=== PATIENT | male | born 1960 | race Two or more races ===

== ENCOUNTER 2017-08-16 15:02 | Inpatient (IN) | payer OTHER ==
[2017-08-16 18:59] VITALS: BMI 30.9
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
[2017-08-16] MEDS ORDERED: chlordiazePOXIDE HCL 25 MG CAPSULE PO ONE (20:37)
[2017-08-16] MEDS ORDERED: MENTHOL/PHENOL 1 EACH UD MM PRN (20:37)
[2017-08-16] MEDS ORDERED: MAGNESIUM HYDROX 2400MG/30ML ORAL SUSPENSION 30 ML CUP PO PRN (20:37)
[2017-08-16] MEDS ORDERED: NICOTINE POLACRILEX 2 MG GUM BC PRN (20:37)
[2017-08-16] MEDS ORDERED: MAGNESIUM CITRATE 300 ML BOTTLE PO PRN (20:37)
[2017-08-16] MEDS ORDERED: P-EPHED 60MG/TRIPROLIDI 2.5MG TABLET PO PRN (20:37)
[2017-08-16] MEDS ORDERED: chlordiazePOXIDE HCL 25 MG CAPSULE PO PRN (20:37)
[2017-08-16] MEDS ORDERED: LOPERAMIDE HCL 2 MG CAPSULE PO PRN (20:37)
[2017-08-16] MEDS ORDERED: MAG HYDROX/AL HYDROX/SIMETH 30 ML UNIT-DOSE CUP PO PRN (20:37)
[2017-08-16 22:54] LABS: URINE APPEARANCE CLEAR; URINE BILIRUBIN NEGATIVE (NEGATIVE); URINE BLOOD NEGATIVE (NEGATIVE); URINE COLOR YELLOW; URINE GLUCOSE (UA) NEGATIVE (NEGATIVE); URINE KETONE NEGATIVE (NEGATIVE); URINE LEUK ESTERASE NEGATIVE (NEGATIVE); URINE NITRITE NEGATIVE (NEGATIVE); URINE PROTEIN NEGATIVE (NEGATIVE); URINE UROBILINOGEN 4.0 E.U/dl mg/dL (0.2-1.0)
[2017-08-16] MEDS: THIAMINE HCL 100 MG TABLET (FP) PO SCH (22:58)
[2017-08-16] MEDS: chlordiazePOXIDE HCL 25 MG CAPSULE PO SCH (22:58)
[2017-08-16] MEDS: RANITIDINE HCL 150 MG TABLET (FP) PO SCH (22:58)
[2017-08-16] MEDS: IBUPROFEN 400 MG TABLET (FP) PO PRN (23:01)
[2017-08-17] MEDS: chlordiazePOXIDE HCL 25 MG CAPSULE PO SCH ×4 (05:43→22:08)
[2017-08-17] MEDS: IBUPROFEN 400 MG TABLET (FP) PO PRN ×2 (05:44→17:42)
[2017-08-17] MEDS ORDERED: METHADONE HCL 10 MG TABLET PO SCH (09:00)
[2017-08-17] MEDS ORDERED: METHADONE HCL 40 MG DISPERSABLE TABLET ONE (09:26)
[2017-08-17] MEDS ORDERED: METHADONE HCL 10 MG TABLET ONE (09:27)
[2017-08-17] MEDS: METHADONE 120 MG, METHADONE 30 MG PO SCH (10:00)
[2017-08-17 10:20] LABS: HEMATOCRIT 38.5 % (35.4-49); HEMOGLOBIN 12.1 GM/dL (11.7-16.9); MCH 26.6 pg (25.7-33.7); MCHC 31.5 g/dl (32.0-35.9); MEAN CELL VOLUME 84.6 fl (80-96); MEAN PLT VOLUME 10.2 fl (7.5-11.1); PLATELET COUNT 121 K/MM3 (134-434); RBC 4.55 M/mm3 (4.00-5.60); RDW 20.9 % (11.9-15.9)
[2017-08-17 10:26] LABS: BLOOD UREA NITROGEN 17 mg/dL (7-18); CHLORIDE 99 mmol/L (98-107); GLUCOSE,RANDOM 83 mg/dL (74-106); POTASSIUM 4.5 mmol/L (3.5-5.1); SODIUM 136 mmol/L (136-145)
[2017-08-17 10:31] LABS: ALK PHOS 142 U/L (45-117); ANION GAP 9 (8-16); BILIRUBIN,TOTAL 0.7 mg/dL (0.2-1.0); CALCIUM 8.5 mg/dL (8.5-10.1); CO2 28 mmol/L (21-32); CREATININE 0.7 mg/dL (0.7-1.3); SGOT/AST 116 U/L (15-37); SGPT/ALT 72 U/L (12-78); TOT PROT 8.6 g/dl (6.4-8.2)
[2017-08-17] MEDS: PRENATAL VITAMINS W/ FOLIC ACID TABLET (FP) PO SCH (10:49)
[2017-08-17] MEDS: SULFAMETHOXAZOLE/TRIMETHOPRIM 800MG/160MG D.S. TABLET PO SCH (10:49)
[2017-08-17] MEDS: RALTEGRAVIR POTASSIUM 400 MG TAB PO SCH (10:49)
[2017-08-17] MEDS: ATAZANAVIR SO4 300 MG CAPSULE PO SCH (10:49)
[2017-08-17] MEDS: RANITIDINE HCL 150 MG TABLET (FP) PO SCH ×2 (10:50→22:08)
[2017-08-17] MEDS: EMTRICITABINE 200MG/TENOFOVIR 300MG PO SCH (10:50)
[2017-08-17] MEDS: RITONAVIR 100 MG TABLET PO SCH (10:50)
[2017-08-17] MEDS: ASPIRIN COATED 81 MG TABLET.EC PO SCH (10:50)
[2017-08-17] MEDS: NICOTINE 14 MG/24 HOURS TOPICAL PATCH TD SCH (10:51)
--- NOTE | 2017-08-17 11:16 | PN ---
S CIWA - CIWA Score Nausea/Vomitin Muscle Tremors: 3 Anxiety: 3 Agitation: 3 Paroxysmal Sweats: 1-Minimal Palms Moist Orientation: 0-Oriented Tacttile Disturbances: 1-Very Mild Itch/Numbness Auditory Disturbances: 1-Very Mild Visual Disturbances: 0-None Headache: 2-Mild CIWA-Ar Total Score: 17 BHS Progress Note (SOAP) Subjective: ALERT,IRRITABLE,ANXIOUS,INTERRUPTED SLEEP,TREMOR,PAIN IN THE BODY Objective: 08/17/17 11:13 Vital Signs Temperature 99.1 F 08/17/17 10:12 Pulse Rate 69 08/17/17 10:12 Respiratory Rate 18 08/17/17 10:12 Blood Pressure 156/85 08/17/17 10:12 O2 Sat by Pulse Oximetry (%) EKG SINUS BRADYCARDIA 55/NV,POLONG QT 462/441 NO CHEST PAIN,NO SOB,NO DIZZINESS Laboratory Last Values WBC 3.0 K/mm3 (4.0-10.0) L 08/17/17 07:40 RBC 4.55 M/mm3 (4.00-5.60) 08/17/17 07:40 Hgb 12.1 GM/dL (11.7-16.9) 08/17/17 07:40 Hct 38.5 % (35.4-49) 08/17/17 07:40 MCV 84.6 fl (80-96) 08/17/17 07:40 MCH 26.6 pg (25.7-33.7) 08/17/17 07:40 MCHC 31.5 g/dl (32.0-35.9) L 08/17/17 07:40 RDW 20.9 % (11.9-15.9) H D 08/17/17 07:40 Plt Count 121 K/MM3 (134-434) L 08/17/17 07:40 MPV 10.2 fl (7.5-11.1) 08/17/17 07:40 Sodium 136 mmol/L (136-145) 08/17/17 08:00 Potassium 4.5 mmol/L (3.5-5.1) 08/17/17 08:00 Chloride 99 mmol/L (98-107) 08/17/17 08:00 Carbon Dioxide 28 mmol/L (21-32) 08/17/17 08:00 Anion Gap 9 (8-16) 08/17/17 08:00 BUN 17 mg/dL (7-18) D 08/17/17 08:00 Creatinine 0.7 mg/dL (0.7-1.3) D 08/17/17 08:00 Creat Clearance w eGFR > 60 (>60) 08/17/17 08:00 Random Glucose 83 mg/dL (74-106) 08/17/17 08:00 Calcium 8.5 mg/dL (8.5-10.1) 08/17/17 08:00 Total Bilirubin 0.7 mg/dL (0.2-1.0) D 08/17/17 08:00 AST 116 U/L (15-37) H D 08/17/17 08:00 ALT 72 U/L (12-78) D 08/17/17 08:00 Alkaline Phosphatase 142 U/L (45-117) H D 08/17/17 08:00 Total Protein 8.6 g/dl (6.4-8.2) H 08/17/17 08:00 Albumin 3.0 g/dl (3.4-5.0) L 08/17/17 08:00 Urine Color Yellow 08/16/17 Unknown Urine Appearance Clear 08/16/17 Unknown Urine pH 5.0 (5.0-8.0) 08/16/17 Unknown Ur Specific [place] 1.019 (1.001-1.035) 08/16/17 Unknown Urine Protein Negative (NEGATIVE) 08/16/17 Unknown Urine Glucose (UA) Negative (NEGATIVE) 08/16/17 Unknown Urine Ketones Negative (NEGATIVE) 08/16/17 Unknown Urine Blood Negative (NEGATIVE) 08/16/17 Unknown Urine Nitrite Negative (NEGATIVE) 08/16/17 Unknown Urine Bilirubin Negative (NEGATIVE) 08/16/17 Unknown Urine Urobilinogen 4.0 e.u/dl mg/dL (0.2-1.0) 08/16/17 Unknown Ur Leukocyte Esterase Negative (NEGATIVE) 08/16/17 Unknown Assessment: 08/17/17 11:15 WITHDRAWAL SYMPTOM Plan: CONTINUE DETOX,D/C TYLENOL DUE TO ELEVATION OF AST,ALT
--- NOTE | 2017-08-17 11:46 | CONSULT ---
[facility] Psychiatric Consult - Data Date of interview: 08/17/17 Admission source: [facility] Identifying data: Pt. is a 57 year old male, , father of three, unemployed and collecting SSI. This is one of multiple admissions for patient. Pt. admitted to for Substance Abuse History: Following information confirmed with Mr. Ronquillo: Smoking Cessation. Smoking history: Current every day smoker. Have you smoked in the past 12 months: Yes. Aproximately how many cigarettes per day: 20. Hx Chewing Tobacco Use: No. Initiated information on smoking cessation: Yes. ' Breaking Loose' booklet given: 08/16/17. - Substance & Tx. History. Hx Alcohol Use: Yes. Hx Substance Use: Yes. Substance Use Type: Alcohol, Cocaine , Heroin. Hx Substance Use Treatment: Yes ([facility] November 2013). - Substances Abused. Alcohol. Route: Oral. Frequency: Daily. Amount used: Beer 12 x 24oz, Vodka 5 x .5pints. Age of first use: 14. Date of Last Use: 08/16/17 Medical History: Anemia, Hep C, HIV (2010) Psychiatric History: Pt. denies h/o psychiatric hospitalizations. Reports outpatient care from [facility] for five years but will now be seeing a psychiatrist at the [facility] in the [place]. Diagnosed with MDD. States he is prescribed prozac 40mg and trazodone 150mg but has been medication nonadherent for one month. Pt. denies h/o suicide attempt. Physical/Sexual Abuse/Trauma History: Denies. Mental Status Exam - Mental Status Exam Alert and Oriented to: Time, Place, Person Cognitive Function: Good Patient Appearance: Well Groomed Mood: Euthymic Affect: Mood Congruent Patient Behavior: Cooperative Speech Pattern: Appropriate Voice Loudness: Normal Thought Process: Goal Oriented Thought Disorder: Not Present Hallucinations: Denies Suicidal Ideation: Denies Homicidal Ideation: Denies Insight/Judgement: Poor Sleep: Poorly Appetite: Fair Muscle strength/Tone: Normal Gait/Station: Normal Psychiatric Findings - Problem List ([place] 1, 2,3) (1) Cocaine dependence Current Visit: Yes Status: Chronic Qualifiers: Substance use status: uncomplicated Qualified Code(s): F14.20 - Cocaine dependence, uncomplicated (2) Opioid dependence Current Visit: Yes Status: Chronic Qualifiers: Substance use status: uncomplicated Qualified Code(s): F11.20 - Opioid dependence, uncomplicated (3) Alcohol dependence with uncomplicated withdrawal Current Visit: Yes Status: Acute (4) Methadone maintenance therapy patient Current Visit: Yes Status: Chronic Comment: 150 mg dose, pending verified (5) MDD (major depressive disorder) Current Visit: Yes Status: Chronic Comment: History. - Initial Treatment Plan Initial Treatment Plan: Psychoeducation provided. Detoxification in progress. Prozac 20mg (reduce dosage. Nonadherent for one month), and trazodone 50mg qhs ordered(reduce dosage. Nonadherent for one month). Pt. agreeable with plan Benefits and shannon effects discussed. Verbal consent given. Will continue to monitor.
[2017-08-17] MEDS: FLUoxetine HCL 20 MG CAPSULE (FP) PO SCH (11:54)
[2017-08-17] MEDS: ACETAMINOPHEN 325 MG TABLET (FP) PO PRN (18:39)
[2017-08-17] MEDS: traZODone HCL 50 MG TABLET (FP) PO SCH (22:08)
[2017-08-17] MEDS: THIAMINE HCL 100 MG TABLET (FP) PO SCH (22:08)
[2017-08-18] MEDS ORDERED: METHADONE HCL 40 MG DISPERSABLE TABLET ONE (03:29)
[2017-08-18] MEDS ORDERED: METHADONE HCL 10 MG TABLET ONE (03:29)
[2017-08-18] MEDS: METHADONE 120 MG, METHADONE 30 MG PO SCH (06:11)
[2017-08-18] MEDS: chlordiazePOXIDE HCL 25 MG CAPSULE PO SCH ×3 (06:11→17:43)
[2017-08-18] MEDS: SULFAMETHOXAZOLE/TRIMETHOPRIM 800MG/160MG D.S. TABLET PO SCH (11:00)
[2017-08-18] MEDS: FLUoxetine HCL 20 MG CAPSULE (FP) PO SCH (11:00)
[2017-08-18] MEDS: RITONAVIR 100 MG TABLET PO SCH (11:00)
[2017-08-18] MEDS: ASPIRIN COATED 81 MG TABLET.EC PO SCH (11:00)
[2017-08-18] MEDS: PRENATAL VITAMINS W/ FOLIC ACID TABLET (FP) PO SCH (11:00)
[2017-08-18] MEDS: RANITIDINE HCL 150 MG TABLET (FP) PO SCH ×2 (11:01→22:13)
[2017-08-18] MEDS: ATAZANAVIR SO4 300 MG CAPSULE PO SCH (11:01)
[2017-08-18] MEDS: EMTRICITABINE 200MG/TENOFOVIR 300MG PO SCH (11:01)
[2017-08-18] MEDS: RALTEGRAVIR POTASSIUM 400 MG TAB PO SCH (11:03)
[2017-08-18] MEDS: NICOTINE 14 MG/24 HOURS TOPICAL PATCH TD SCH (11:05)
[2017-08-18] MEDS: IBUPROFEN 400 MG TABLET (FP) PO PRN (16:11)
--- NOTE | 2017-08-18 20:52 | PN ---
S CIWA - CIWA Score Nausea/Vomitin Muscle Tremors: 3 Anxiety: 3 Agitation: 3 Paroxysmal Sweats: 3 Orientation: 0-Oriented Tacttile Disturbances: 0-None Auditory Disturbances: 0-None Visual Disturbances: 0-None Headache: 0-None Present CIWA-Ar Total Score: 15 BHS Progress Note (SOAP) Subjective: shakes sweats diarrhea Objective: 08/18/17 20:51 Vital Signs Temperature 101.1 F H 08/18/17 18:13 Pulse Rate 94 H 08/18/17 18:13 Respiratory Rate 20 08/18/17 18:13 Blood Pressure 126/83 08/18/17 18:13 O2 Sat by Pulse Oximetry (%) Laboratory Last Values WBC 3.0 K/mm3 (4.0-10.0) L 08/17/17 07:40 RBC 4.55 M/mm3 (4.00-5.60) 08/17/17 07:40 Hgb 12.1 GM/dL (11.7-16.9) 08/17/17 07:40 Hct 38.5 % (35.4-49) 08/17/17 07:40 MCV 84.6 fl (80-96) 08/17/17 07:40 MCH 26.6 pg (25.7-33.7) 08/17/17 07:40 MCHC 31.5 g/dl (32.0-35.9) L 08/17/17 07:40 RDW 20.9 % (11.9-15.9) H D 08/17/17 07:40 Plt Count 121 K/MM3 (134-434) L 08/17/17 07:40 MPV 10.2 fl (7.5-11.1) 08/17/17 07:40 Sodium 136 mmol/L (136-145) 08/17/17 08:00 Potassium 4.5 mmol/L (3.5-5.1) 08/17/17 08:00 Chloride 99 mmol/L (98-107) 08/17/17 08:00 Carbon Dioxide 28 mmol/L (21-32) 08/17/17 08:00 Anion Gap 9 (8-16) 08/17/17 08:00 BUN 17 mg/dL (7-18) D 08/17/17 08:00 Creatinine 0.7 mg/dL (0.7-1.3) D 08/17/17 08:00 Creat Clearance w eGFR > 60 (>60) 08/17/17 08:00 Random Glucose 83 mg/dL (74-106) 08/17/17 08:00 Calcium 8.5 mg/dL (8.5-10.1) 08/17/17 08:00 Total Bilirubin 0.7 mg/dL (0.2-1.0) D 08/17/17 08:00 AST 116 U/L (15-37) H D 08/17/17 08:00 ALT 72 U/L (12-78) D 08/17/17 08:00 Alkaline Phosphatase 142 U/L (45-117) H D 08/17/17 08:00 Total Protein 8.6 g/dl (6.4-8.2) H 08/17/17 08:00 Albumin 3.0 g/dl (3.4-5.0) L 08/17/17 08:00 Urine Color Yellow 08/16/17 Unknown Urine Appearance Clear 08/16/17 Unknown Urine pH 5.0 (5.0-8.0) 08/16/17 Unknown Ur Specific [place] 1.019 (1.001-1.035) 08/16/17 Unknown Urine Protein Negative (NEGATIVE) 08/16/17 Unknown Urine Glucose (UA) Negative (NEGATIVE) 08/16/17 Unknown Urine Ketones Negative (NEGATIVE) 08/16/17 Unknown Urine Blood Negative (NEGATIVE) 08/16/17 Unknown Urine Nitrite Negative (NEGATIVE) 08/16/17 Unknown Urine Bilirubin Negative (NEGATIVE) 08/16/17 Unknown Urine Urobilinogen 4.0 e.u/dl mg/dL (0.2-1.0) 08/16/17 Unknown Ur Leukocyte Esterase Negative (NEGATIVE) 08/16/17 Unknown RPR Titer Nonreactive (NONREACTIVE) 08/17/17 07:40 Assessment: 08/18/17 20:51 withdrawal sx Plan: continue detox
[2017-08-18] MEDS: THIAMINE HCL 100 MG TABLET (FP) PO SCH (22:13)
[2017-08-18] MEDS: traZODone HCL 50 MG TABLET (FP) PO SCH (22:13)
[2017-08-18] MEDS: chlordiazePOXIDE 5 MG CAPSULE PO SCH (22:13)
[2017-08-19] MEDS: IBUPROFEN 400 MG TABLET (FP) PO PRN ×2 (02:57→17:09)
[2017-08-19] MEDS ORDERED: METHADONE HCL 40 MG DISPERSABLE TABLET ONE (06:07)
[2017-08-19] MEDS: METHADONE 120 MG, METHADONE 30 MG PO SCH (06:08)
[2017-08-19] MEDS: chlordiazePOXIDE 5 MG CAPSULE PO SCH ×3 (06:08→17:09)
[2017-08-19] MEDS ORDERED: METHADONE HCL 10 MG TABLET ONE (06:08)
[2017-08-19] MEDS: ATAZANAVIR SO4 300 MG CAPSULE PO SCH (10:49)
[2017-08-19] MEDS: EMTRICITABINE 200MG/TENOFOVIR 300MG PO SCH (10:49)
[2017-08-19] MEDS: RITONAVIR 100 MG TABLET PO SCH (10:49)
[2017-08-19] MEDS: SULFAMETHOXAZOLE/TRIMETHOPRIM 800MG/160MG D.S. TABLET PO SCH (10:50)
[2017-08-19] MEDS: ASPIRIN COATED 81 MG TABLET.EC PO SCH (10:50)
[2017-08-19] MEDS: PRENATAL VITAMINS W/ FOLIC ACID TABLET (FP) PO SCH (10:50)
[2017-08-19] MEDS: FLUoxetine HCL 20 MG CAPSULE (FP) PO SCH (10:50)
[2017-08-19] MEDS: RANITIDINE HCL 150 MG TABLET (FP) PO SCH ×2 (10:50→22:33)
[2017-08-19] MEDS: RALTEGRAVIR POTASSIUM 400 MG TAB PO SCH (10:51)
[2017-08-19] MEDS: NICOTINE 14 MG/24 HOURS TOPICAL PATCH TD SCH (10:55)
[2017-08-19] MEDS: guaiFENesin/D-METHORPHAN HB 10 ML UNIT-DOSE CUPS PO PRN ×2 (10:55→17:13)
--- NOTE | 2017-08-19 13:32 | PN ---
[facility] Progress Note (SOAP) Subjective: alert oriented x 3 tolerate food and fluid well had pneumonia few weeks ago antibiotic completed Objective: 08/19/17 13:29 Vital Signs Temperature 98.4 F 08/19/17 10:00 Pulse Rate 90 08/19/17 10:00 Respiratory Rate 20 08/19/17 10:00 Blood Pressure 129/72 08/19/17 10:00 O2 Sat by Pulse Oximetry (%) Laboratory Last Values WBC 3.0 K/mm3 (4.0-10.0) L 08/17/17 07:40 RBC 4.55 M/mm3 (4.00-5.60) 08/17/17 07:40 Hgb 12.1 GM/dL (11.7-16.9) 08/17/17 07:40 Hct 38.5 % (35.4-49) 08/17/17 07:40 MCV 84.6 fl (80-96) 08/17/17 07:40 MCH 26.6 pg (25.7-33.7) 08/17/17 07:40 MCHC 31.5 g/dl (32.0-35.9) L 08/17/17 07:40 RDW 20.9 % (11.9-15.9) H D 08/17/17 07:40 Plt Count 121 K/MM3 (134-434) L 08/17/17 07:40 MPV 10.2 fl (7.5-11.1) 08/17/17 07:40 Sodium 136 mmol/L (136-145) 08/17/17 08:00 Potassium 4.5 mmol/L (3.5-5.1) 08/17/17 08:00 Chloride 99 mmol/L (98-107) 08/17/17 08:00 Carbon Dioxide 28 mmol/L (21-32) 08/17/17 08:00 Anion Gap 9 (8-16) 08/17/17 08:00 BUN 17 mg/dL (7-18) D 08/17/17 08:00 Creatinine 0.7 mg/dL (0.7-1.3) D 08/17/17 08:00 Creat Clearance w eGFR > 60 (>60) 08/17/17 08:00 Random Glucose 83 mg/dL (74-106) 08/17/17 08:00 Calcium 8.5 mg/dL (8.5-10.1) 08/17/17 08:00 Total Bilirubin 0.7 mg/dL (0.2-1.0) D 08/17/17 08:00 AST 116 U/L (15-37) H D 08/17/17 08:00 ALT 72 U/L (12-78) D 08/17/17 08:00 Alkaline Phosphatase 142 U/L (45-117) H D 08/17/17 08:00 Total Protein 8.6 g/dl (6.4-8.2) H 08/17/17 08:00 Albumin 3.0 g/dl (3.4-5.0) L 08/17/17 08:00 Urine Color Yellow 08/16/17 Unknown Urine Appearance Clear 08/16/17 Unknown Urine pH 5.0 (5.0-8.0) 08/16/17 Unknown Ur Specific [place] 1.019 (1.001-1.035) 08/16/17 Unknown Urine Protein Negative (NEGATIVE) 08/16/17 Unknown Urine Glucose (UA) Negative (NEGATIVE) 08/16/17 Unknown Urine Ketones Negative (NEGATIVE) 08/16/17 Unknown Urine Blood Negative (NEGATIVE) 08/16/17 Unknown Urine Nitrite Negative (NEGATIVE) 08/16/17 Unknown Urine Bilirubin Negative (NEGATIVE) 08/16/17 Unknown Urine Urobilinogen 4.0 e.u/dl mg/dL (0.2-1.0) 08/16/17 Unknown Ur Leukocyte Esterase Negative (NEGATIVE) 08/16/17 Unknown RPR Titer Nonreactive (NONREACTIVE) 08/17/17 07:40 lab noted Assessment: 08/19/17 13:29 mild withdrawal sx 98.4 at the present time Plan: medically supervised detox patient is immunocompromized client begin levaquin 500 mg po daily x 3 days encourage the patient follow up with infection disease physician
[2017-08-19] MEDS: traZODone HCL 50 MG TABLET (FP) PO SCH (22:33)
[2017-08-19] MEDS: ACETAMINOPHEN 325 MG TABLET (FP) PO PRN (22:33)
[2017-08-19] MEDS: chlordiazePOXIDE HCL 10 MG CAPSULE PO SCH (22:33)
[2017-08-19] MEDS: THIAMINE HCL 100 MG TABLET (FP) PO SCH (22:33)
[2017-08-20] MEDS ORDERED: METHADONE HCL 40 MG DISPERSABLE TABLET ONE (05:07)
[2017-08-20] MEDS ORDERED: METHADONE HCL 10 MG TABLET ONE (05:07)
[2017-08-20] MEDS: METHADONE 120 MG, METHADONE 30 MG PO SCH (05:52)
[2017-08-20] MEDS: chlordiazePOXIDE HCL 10 MG CAPSULE PO SCH ×2 (05:52→10:36)
--- NOTE | 2017-08-20 10:05 | DS ---
[facility] Detox Discharge Summary Admission Date: 08/16/17 Discharge Date: 08/20/17 - History Present History: Alcohol Dependence, Cocaine Dependence, MMTP Additional Comments: FOLLOW UP WITH AFTER CARE PROGRAM ARRANGEMENT Pertinent Past History: GERD OBESITY - Physical Exam Results Vital Signs: Vital Signs Temperature 97.0 F L 08/20/17 06:12 Pulse Rate 20 L 08/20/17 06:12 Respiratory Rate 84 H 08/20/17 06:12 Blood Pressure 106/66 08/20/17 06:12 O2 Sat by Pulse Oximetry (%) Pertinent Admission Physical Exam Findings: WITHDRAWAL SYMPTOM - Treatment Hospital Course: Detox Protocol Followed, Detoxed Safely, Responded well, Discharged Condition Good Patient has Accepted a Rehab Referral to: [facility] - Medication Discharge Medications: Ambulatory Orders Aspirin [Aspirin EC] 81 mg PO DAILY 12/02/13 Ranitidine [Zantac -] 150 mg PO BID 12/02/13 Sulfamethoxazole/Trimethoprim [Bactrim DS -] 1 tab PO DAILY 12/02/13 Fluoxetine HCl [Prozac] 40 mg PO DAILY #30 capsule 12/03/13 traZODone HCL [Desyrel -] 150 mg PO HS #30 tablet 12/03/13 Atazanavir [Reyataz -] 300 mg PO DAILY 08/16/17 Emtricitabine/Tenofovir [Truvada -] 1 tab PO DAILY 08/16/17 Raltegravir [Isentress] 400 mg PO DAILY 08/16/17 Ritonavir [Norvir -] 100 mg PO DAILY 08/16/17 levoFLOXacin [Levaquin -] 500 mg PO DAILY@0600 #1 tablet 08/19/17 - Diagnosis (1) Alcohol dependence with uncomplicated withdrawal Current Visit: Yes Status: Acute (2) Cocaine dependence Current Visit: Yes Status: Chronic Qualifiers: Substance use status: uncomplicated Qualified Code(s): F14.20 - Cocaine dependence, uncomplicated (3) Gastroesophageal reflux disease Current Visit: Yes Status: Chronic Qualifiers: Esophagitis presence: without esophagitis Qualified Code(s): K21.9 - Gastro -esophageal reflux disease without esophagitis (4) History of positive PPD Current Visit: Yes Status: Chronic (5) Human immunodeficiency virus infection Current Visit: Yes Status: Chronic (6) Methadone maintenance therapy patient Current Visit: Yes Status: Chronic (7) Cannabis dependence Current Visit: No Status: Acute (8) Obese Current Visit: Yes Status: Acute Qualifiers: Obesity type: unspecified obesity type Obesity classification: adult class 1 (BMI 30 - 34.9) Serious obesity comorbidity presence: unspecified whether serious comorbidity present - AMA Did Patient Leave Against Medical Advice: No
[2017-08-20] MEDS: FLUoxetine HCL 20 MG CAPSULE (FP) PO SCH (10:35)
[2017-08-20] MEDS: SULFAMETHOXAZOLE/TRIMETHOPRIM 800MG/160MG D.S. TABLET PO SCH (10:35)
[2017-08-20] MEDS: RITONAVIR 100 MG TABLET PO SCH (10:35)
[2017-08-20] MEDS: ATAZANAVIR SO4 300 MG CAPSULE PO SCH (10:35)
[2017-08-20] MEDS: PRENATAL VITAMINS W/ FOLIC ACID TABLET (FP) PO SCH (10:35)
[2017-08-20] MEDS: EMTRICITABINE 200MG/TENOFOVIR 300MG PO SCH (10:35)
[2017-08-20] MEDS: RANITIDINE HCL 150 MG TABLET (FP) PO SCH (10:35)
[2017-08-20] MEDS: ASPIRIN COATED 81 MG TABLET.EC PO SCH (10:35)
[2017-08-20] MEDS: RALTEGRAVIR POTASSIUM 400 MG TAB PO SCH (10:35)
[2017-08-20] MEDS: NICOTINE 14 MG/24 HOURS TOPICAL PATCH TD SCH (10:36)
[2017-08-20] MEDS: ACETAMINOPHEN 325 MG TABLET (FP) PO PRN (12:44)
[2017-08-20 13:30] VITALS: BP 138/75; PULSE 97; TEMP 101.8
--- NOTE | 2017-08-21 13:37 | EKG ---
Test Reason : Blood Pressure : / mmHG Vent. Rate : 055 BPM Atrial Rate : 055 BPM P-R Int : 150 ms QRS Dur : 088 ms QT Int : 462 ms P-R-T Axes : 064 047 046 degrees QTc Int : 441 ms SINUS BRADYCARDIA OTHERWISE NORMAL ECG WHEN COMPARED WITH ECG OF 16-AUG-2017 22:49, NO SIGNIFICANT CHANGE WAS FOUND Confirmed by MD Hood Daniel ([id number]) on 08/21/2017 1:37:25 PM Referred By: Confirmed By:Maverick Hood MD
--- NOTE | 2017-08-21 13:38 | EKG ---
Test Reason : Blood Pressure : / mmHG Vent. Rate : 064 BPM Atrial Rate : 064 BPM P-R Int : 164 ms QRS Dur : 080 ms QT Int : 478 ms P-R-T Axes : 059 056 057 degrees QTc Int : 493 ms NORMAL SINUS RHYTHM PROLONGED QT ABNORMAL ECG NO PREVIOUS ECGS AVAILABLE Confirmed by MD Erwin, Maverick ([id number]) on 08/21/2017 1:37:57 PM Referred By: Confirmed By:Maverick Hood MD
== END 2017-08-20 16:04 | disposition home or self-care (01) | DRG 773 ==
LOC: YASAS 15:02 → Y6N 19:49
PROVIDERS: ADMIT Internal Medicine; ATTEND Internal Medicine
PROC: HZ2ZZZZ Detoxification Services for Substance Abuse Treatment (ICD-10-PCS; principal; 2017-08-16)
DX: F11.20 Opioid dependence, uncomplicated (principal); F10.230 Alcohol dependence with withdrawal, uncomplicated; F14.20 Cocaine dependence, uncomplicated; F12.20 Cannabis dependence, uncomplicated; F33.9 Major depressive disorder, recurrent, unspecified; K21.9 Gastro-esophageal reflux disease without esophagitis; Z21 Asymptomatic human immunodeficiency virus [HIV] infection status; Z68.31 Body mass index [BMI] 31.0-31.9, adult; R76.11 Nonspecific reaction to tuberculin skin test without active tuberculosis
CPT/HCPCS: 36415; 71046-TC-FY; 80053; 81003; 85027; 86593; 93005; 93010

== ENCOUNTER 2017-08-20 16:29 | Inpatient (IN) | payer OTHER ==
[2017-08-20] MEDS ORDERED: MAG HYDROX/AL HYDROX/SIMETH 30 ML UNIT-DOSE CUP PO PRN (17:11)
[2017-08-20] MEDS ORDERED: MAGNESIUM HYDROX 2400MG/30ML ORAL SUSPENSION 30 ML CUP PO PRN (17:11)
[2017-08-20] MEDS ORDERED: LOPERAMIDE HCL 2 MG CAPSULE PO PRN (17:11)
[2017-08-20] MEDS ORDERED: hydrOXYzine PAMOATE 50 MG CAPSULE (FP) PO PRN (17:11)
[2017-08-20] MEDS ORDERED: MENTHOL/PHENOL 1 EACH UD MM PRN (17:11)
[2017-08-20] MEDS ORDERED: P-EPHED 60MG/TRIPROLIDI 2.5MG TABLET PO PRN (17:11)
[2017-08-20] MEDS ORDERED: MAGNESIUM CITRATE 300 ML BOTTLE PO PRN (17:11)
[2017-08-20] MEDS ORDERED: guaiFENesin/D-METHORPHAN HB 10 ML UNIT-DOSE CUPS PO PRN (17:11)
[2017-08-20] MEDS ORDERED: IBUPROFEN 400 MG TABLET (FP) PO PRN (17:11)
[2017-08-20] MEDS ORDERED: NICOTINE POLACRILEX 4 MG GUM BUC PRN (17:11)
[2017-08-20] MEDS: THIAMINE HCL 100 MG TABLET (FP) PO SCH (21:12)
[2017-08-20] MEDS: RANITIDINE HCL 150 MG TABLET (FP) PO SCH (21:13)
[2017-08-20] MEDS: NICOTINE 21 MG/24 HOURS TOPICAL PATCH TD SCH (21:13)
[2017-08-20] MEDS: traZODone HCL 50 MG TABLET (FP) PO SCH (22:43)
[2017-08-21] MEDS ORDERED: METHADONE HCL 10 MG TABLET PO SCH (06:00)
[2017-08-21] MEDS ORDERED: METHADONE HCL 40 MG DISPERSABLE TABLET ONE (06:05)
[2017-08-21] MEDS ORDERED: METHADONE HCL 10 MG TABLET ONE (06:05)
[2017-08-21] MEDS: ACETAMINOPHEN 325 MG TABLET (FP) PO PRN ×2 (06:36→15:16)
[2017-08-21] MEDS: METHADONE 120 MG, METHADONE 30 MG PO SCH (06:37)
[2017-08-21] MEDS: ATAZANAVIR SO4 300 MG CAPSULE PO SCH (07:02)
[2017-08-21] MEDS: RITONAVIR 100 MG TABLET PO SCH (07:02)
[2017-08-21] MEDS: RALTEGRAVIR POTASSIUM 400 MG TAB PO SCH (07:02)
[2017-08-21] MEDS: PRENATAL VITAMINS W/ FOLIC ACID TABLET (FP) PO SCH (09:53)
[2017-08-21] MEDS: SULFAMETHOXAZOLE/TRIMETHOPRIM 800MG/160MG D.S. TABLET PO SCH (09:53)
[2017-08-21] MEDS: FLUoxetine HCL 20 MG CAPSULE (FP) PO SCH (09:53)
[2017-08-21] MEDS: RANITIDINE HCL 150 MG TABLET (FP) PO SCH ×2 (09:53→21:22)
[2017-08-21] MEDS: NICOTINE 21 MG/24 HOURS TOPICAL PATCH TD SCH (09:53)
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
[2017-08-21] MEDS ORDERED: PNEUMOC 13-VAL CONJ-DIP CRM/PF 0.5 ML DISP.SYRIN IM ONE (12:00)
[2017-08-21] MEDS ORDERED: hydrOXYzine PAMOATE 50 MG CAPSULE (FP) PO PRN (13:01)
--- NOTE | 2017-08-21 13:08 | HP ---
[facility] Rehab Assess/Revision - Admission History Admitted to Rehab from: [facility] Date of Admission to Rehab: 08/21/2017 - Vital signs Vital Signs: Vital Signs Period Temp Pulse Resp BP Sys/Dsouza Pulse Ox Last 24 Hr 98 F-100.0 F 88 18-20 151/65 - Findings Detox History & Physical reviewed: Yes Concur with findings: Yes Inpatient Rehab Admission - Initial Determination Are CD services needed?: Yes Free of communicable disease: Yes Not in need of hospitalization: Yes - Rehab Admission Criteria Comorbidities: Yes Patient is meeting Inpatient Rehab admission criteria:: Yes
[2017-08-21] MEDS ORDERED: AZITHROMYCIN 250 MG TABLET PO ONE (13:55)
[2017-08-21] MEDS: traZODone HCL 50 MG TABLET (FP) PO SCH (21:22)
[2017-08-21] MEDS: THIAMINE HCL 100 MG TABLET (FP) PO SCH (21:22)
[2017-08-22] MEDS ORDERED: METHADONE HCL 40 MG DISPERSABLE TABLET ONE (03:26)
[2017-08-22] MEDS ORDERED: METHADONE HCL 10 MG TABLET ONE (03:26)
[2017-08-22] MEDS: METHADONE 120 MG, METHADONE 30 MG PO SCH (06:19)
[2017-08-22 06:55] VITALS: BP 145/79; PULSE 96
[2017-08-22] MEDS: RALTEGRAVIR POTASSIUM 400 MG TAB PO SCH (07:01)
[2017-08-22] MEDS: RITONAVIR 100 MG TABLET PO SCH (07:01)
[2017-08-22] MEDS: ATAZANAVIR SO4 300 MG CAPSULE PO SCH (07:01)
[2017-08-22] MEDS: RANITIDINE HCL 150 MG TABLET (FP) PO SCH (09:54)
[2017-08-22] MEDS: FLUoxetine HCL 20 MG CAPSULE (FP) PO SCH (09:54)
[2017-08-22] MEDS: SULFAMETHOXAZOLE/TRIMETHOPRIM 800MG/160MG D.S. TABLET PO SCH (09:54)
[2017-08-22] MEDS: PRENATAL VITAMINS W/ FOLIC ACID TABLET (FP) PO SCH (09:54)
[2017-08-22] MEDS: ACETAMINOPHEN 325 MG TABLET (FP) PO PRN (09:55)
[2017-08-22] MEDS: NICOTINE 21 MG/24 HOURS TOPICAL PATCH TD SCH (09:56)
[2017-08-22] MEDS ORDERED: AZITHROMYCIN 250 MG TABLET PO SCH (10:00)
[2017-08-22 11:43] VITALS: TEMP 98.2
--- NOTE | 2017-08-22 14:52 | PN ---
S Progress Note Note: Patient wants to leave AMA. Patient was counseled on the benefits of completing rehab and risk of leaving prior to completion. Patient verbalized understanding.
--- NOTE | 2017-08-22 15:30 | PN ---
[facility] Progress Note Note: patient decided to sigh out AMA today despite staff's recommendations to continue stabilization in inpatient facility.Patient will continue to address his issues on outpatient basis.He will continue current medications as per plan.Scripts for 30 days provided.
== END 2017-08-22 15:45 | disposition left against medical advice (07) | DRG 770 ==
LOC: YASAS 16:29 → Y5N 16:30
PROVIDERS: ADMIT Psychiatry & Neurology Psychiatry; ATTEND Psychiatry & Neurology Psychiatry
PROC: HZ42ZZZ Group Counseling for Substance Abuse Treatment, Cognitive-Behavioral (ICD-10-PCS; principal; 2017-08-20)
DX: F10.20 Alcohol dependence, uncomplicated (principal); F11.20 Opioid dependence, uncomplicated; F14.20 Cocaine dependence, uncomplicated; F12.20 Cannabis dependence, uncomplicated; F17.210 Nicotine dependence, cigarettes, uncomplicated; F41.1 Generalized anxiety disorder; F33.3 Major depressive disorder, recurrent, severe with psychotic symptoms; K21.9 Gastro-esophageal reflux disease without esophagitis; J06.9 Acute upper respiratory infection, unspecified; R76.11 Nonspecific reaction to tuberculin skin test without active tuberculosis; E66.9 Obesity, unspecified
CPT/HCPCS: 71046-TC-FY

== ENCOUNTER 2018-05-28 15:29 | Inpatient (IN) | payer OTHER ==
[2018-05-28 17:08] VITALS: BMI 28.4
--- NOTE | 2018-05-28 21:33 | HP ---
COWS - Scale Resting Pulse: 1= [place] 81-100 Sweatin=Flushed/Facial Moisture Restless Observation: 1= Difficult to Sit Still Pupil Size: 0= Normal to Room Light Bone or Joint Aches: 1= Mild Discomfort Runny Nose/ Eye Tearin= Runny Nose/Eyes GI Upset > 30mins: 2= Nausea/Diarrhea (No diarrhea) Tremor Observation: 2= Slight Tremor Visible Yawning Observation: 0= None Anxiety or Irritability: 1=Feels Anxious/Irritable Goose Flesh Skin: 0=Smooth Skin COWS Score: 12 CIWA Score Nausea/Vomitin-Mild Nausea/No Vomiting Muscle Tremors: 4-Moderate,w/Arms Extend Anxiety: 1-Mildly Anxious Agitation: 4-Moderately Restless Paroxysmal Sweats: 3 (Facial moisture) Orientation: 1-Uncertain about Date Tacttile Disturbances: 1-Very Mild Itch/Numbness (feels crawling under skin) Auditory Disturbances: 0-None Visual Disturbances: 0-None Headache: 2-Mild CIWA-Ar Total Score: 17 - Admission Criteria [facility]ASAS Guidelines: Admission for Medically Managed Detox: Requires at least one of the followin. CIWA greater than 12 2. Seizures within the past 24 hours 3. Delirium tremens within the past 24 hours 4. Hallucinations within the past 24 hours 5. Acute intervention needed for co occurring medical disorder 6. Acute intervention needed for co occurring psychiatric disorder 7. Severe withdrawal that cannot be handled at a lower level of care (continued vomiting, continued diarrhea, abnormal vital signs) requiring intravenous medication and/or fluids 8. Patient presents the following: CIWA greater than 12 Admission Criteria Met: Admission criteria met Admission ROS [facility] Chief Complaint: Here for heroin and alcohol withdrawal). Allergies/Adverse Reactions: Allergies Allergy/AdvReac Type Severity Reaction Status Date / Time No Known Allergies Allergy Verified 05/28/18 18:19 History of Present Illness: Here for detox and get off all these drugs to get my life in order" Nicotine use since age 8. Marijuana use since age 10. Cocaine use since age 14. Heroin use since age 14. Used to be in a [facility] and left 6 months ago. (Was in [facility]) Street methadone x 1 time. Alcohol use since age 21. Denies hx seizures, blackouts, overdose. HIV +. Did not bring HIV meds. States last took 4 days ago. Hx oral Thrush Hx BLE neuropathy and swollen feet States acid reflux undr control. Does not want Zantac. Hx depression - not seeing a MH provider. Denies thoughts of harming self or others. Search Terms: Xavi Ronquillo, 1960 Search Date: 05/28/2018 09:31:56 PM The Drug Utilization Report below displays all of the controlled substance prescriptions, if any, that your patient has filled in the last twelve months. The information displayed on this report is compiled from pharmacy submissions to the Department, and accurately reflects the information as submitted by the pharmacies. This report was requested by: Lynda Moy | Reference #: [id number] There are no results for the search terms that you entered. Exam Limitations: No Limitations - Ebola screening Have you traveled outside of the country in the last 21 days: No Have you had contact with anyone from an Ebola affected area: No Have you been sick,other than usual withdrawal symptoms: No - Review of Systems Constitutional: Chills, Diaphoresis, Changes in sleep (Difficulty staying asleep.) EENT: reports: Blurred Vision, Hearing Loss (Some problems), Dental Problems ( Missing teeth. Chews and swallows ok.) Respiratory: reports: Shortness of Breath (States r/t cigarette smoke) Cardiac: reports: No Symptoms Reported GI: reports: Nausea : reports: No Symptoms Reported Musculoskeletal: reports: Other (Chronic lower legs pain r/t neuopathy) Integumentary: reports: No Symptoms Reported Neuro: reports: Headache, Numbness (in lower legs r/t neuopathy), Tingling ( lower legs pain r/t neuopathy) Endocrine: reports: No Symptoms Reported Hematology: reports: Other (HIV +. Did not bring HIV meds. States last took 4 days ago.) Psychiatric: reports: Judgement Intact, Orientated x3, Agitated, Anxious, Depressed (Denies thoughts of harming self or others) Patient History - Patient Medical History Hx Anemia: Yes Hx Asthma: No Hx Chronic Obstructive Pulmonary Disease (COPD): No Hx Cancer: No Hx Cardiac Disorders: No Hx Congestive Heart Failure: No Hx Hypertension: No Hx Hypercholesterolemia: No HX Cerebrovascular Accident: No Hx Seizures: No Hx Dementia: No Hx Diabetes: No Hx Gastrointestinal Disorders: Yes Hx Liver Disease: Yes (Hep C ) Hx Genitourinary Disorders: No Hx Sexually Transmitted Disorders: Yes Hx Renal Disease (ESRD): No Hx Thyroid Disease: No Hx Human Immunodeficiency Virus (HIV): Yes (SINCE 2010; HX OF ORAL THRUSH) Hx Hepatitis C: Yes (NO TREATMENT) Hx Depression: Yes Hx Suicide Attempt: No Hx Bipolar Disorder: Yes Hx Schizophrenia: No - Patient Surgical History Past Surgical History: Yes Hx Neurologic Surgery: No Hx Cataract Extraction: No Hx Cardiac Surgery: No Hx Lung Surgery: No Hx Breast Surgery: No Hx Breast Biopsy: No Hx Abdominal Surgery: No Hx Appendectomy: No Hx Cholecystectomy: No Hx Genitourinary Surgery: No Hx Section: No Hx Orthopedic Surgery: No (L Rotator cuff in 2010) Anesthesia Reaction: No - PPD History Previous Implant?: Yes Documented Results: Positive w/o proof Implanted On Prior R Admission?: Yes PPD to be Administered?: No - Smoking Cessation Smoking history: Current every day smoker Have you smoked in the past 12 months: Yes Aproximately how many cigarettes per day: 20 Hx Chewing Tobacco Use: No Initiated information on smoking cessation: Yes 'Breaking Loose' booklet given: 05/28/18 - Substance & Tx. History Hx Alcohol Use: Yes Hx Substance Use: Yes Substance Use Type: Alcohol, Cocaine, Heroin, Marijuana Hx Substance Use Treatment: Yes (detox, rehab, past [facility]) - Substances Abused Alcohol Route: Oral Frequency: Daily Amount used: liquor- 2 pints, beer- 1 six pack Age of first use: 21 Date of Last Use: 05/28/18 Heroin Route: Inhalation Frequency: Daily Amount used: 7 bags Age of first use: 14 Date of Last Use: 05/27/18 Cocaine Route: Smoking Age of first use: 14 Marijuana/Hashish Route: Smoking Age of first use: 10 Family Disease History - Family Disease History Family Disease History: Other: Father (ALCOHOLISM-) Admission Physical Exam [facility] - Vital Signs Vital Signs: Vital Signs - 24 hr 05/28/18 17:06 Temperature 99.4 F Pulse Rate 93 H Respiratory 18 Rate Blood Pressure 93/67 - Physical General Appearance: Yes: Appropriately Dressed, Moderate Distress, Tremorous, Sweating, Anxious HEENTM: Yes: EOMI, Hearing grossly Normal, Normocephalic, Normal Voice, BRYAN (2 mm), Rhinorrhea, Other (White patches covering palate and parts of tongue) Respiratory: Yes: Lungs Clear, Normal Breath Sounds, No Respiratory Distress Neck: Yes: No masses,lesions,Nodules, Supple Breast: Yes: Breast Exam Deferred Cardiology: Yes: Regular Rhythm, Regular Rate, S1, S2, Murmur Abdominal: Yes: Soft, Protuberent (Increased abd adiposity), Tenderness (Olivier lower quad tenderness upon deep palpation. No guarding. No rebound tenderness.) Genitourinary: Yes: Within Normal Limits Back: Yes: Normal Inspection Musculoskeletal: Yes: full range of Motion, Gait Steady Extremities: Yes: Normal Capillary Refill, Normal Range of Motion, Tremors (of hands upon arm lifr), Pedal Edema (Bilateral 1+. Pedal pulses present.) Neurological: Yes: manager research II-XII NML intact, Alert, Motor Strength 5/5, Normal Mood /Affect Integumentary: Yes: Normal Color, Dry (Decreased skin turgor), Warm Lymphatic: Yes: Within Normal Limits - Diagnostic (1) Alcohol dependence with uncomplicated withdrawal Current Visit: Yes Status: Acute (2) Opioid dependence with withdrawal Current Visit: Yes Status: Acute (3) Pedal edema Current Visit: Yes Status: Chronic (4) Oral pharyngeal candidiasis Current Visit: Yes Status: Chronic (5) Cannabis dependence Current Visit: Yes Status: Chronic (6) Nicotine dependence Current Visit: Yes Status: Chronic Qualifiers: Nicotine product type: cigarettes Substance use status: uncomplicated Qualified Code(s): F17.210 - Nicotine dependence, cigarettes, uncomplicated (7) Cocaine dependence Current Visit: Yes Status: Chronic Qualifiers: Substance use status: uncomplicated Qualified Code(s): F14.20 - Cocaine dependence, uncomplicated (8) Human immunodeficiency virus infection Current Visit: Yes Status: Chronic Cleared for Admission [facility] - Detox or Rehab [facility] Level of Care: Medically Managed Detox Regimen/Protocol: Methadone/Librium [facility] Breath Alcohol Content Breath Alcohol Content: 0.050 Urine Drug Screen - Results Drug Screen Negative: No Urine Drug Screen Results: THC-Marijuana, SIRISHA-Cocaine, OPI-Opiates, MTD- Methadone, OXY-Oxycodone
[2018-05-28] MEDS ORDERED: MELATONIN 5 MG TABLETS PO PRN (22:00)
[2018-05-28] MEDS ORDERED: NICOTINE POLACRILEX 2 MG GUM BC PRN (22:06)
[2018-05-28] MEDS ORDERED: LOPERAMIDE HCL 2 MG CAPSULE PO PRN (22:06)
[2018-05-28] MEDS ORDERED: chlordiazePOXIDE HCL 25 MG CAPSULE PO PRN (22:06)
[2018-05-28] MEDS ORDERED: MENTHOL/PHENOL 1 EACH UD MM PRN (22:06)
[2018-05-28] MEDS ORDERED: MAGNESIUM CITRATE 300 ML BOTTLE PO PRN (22:06)
[2018-05-28] MEDS ORDERED: METHADONE HCL 10 MG TABLET (FOR DETOX USE ONLY) PO ONE ×2 (22:06→23:00)
[2018-05-28] MEDS ORDERED: MAGNESIUM HYDROX 2400MG/30ML ORAL SUSPENSION 30 ML CUP PO PRN (22:06)
[2018-05-28] MEDS ORDERED: MAG HYDROX/AL HYDROX/SIMETH 30 ML UNIT-DOSE CUP PO PRN (22:06)
[2018-05-28] MEDS: chlordiazePOXIDE HCL 25 MG CAPSULE PO SCH (22:49)
[2018-05-29 01:26] LABS: URINE APPEARANCE CLEAR; URINE BILIRUBIN NEGATIVE (<2.0 mg/dL); URINE COLOR YELLOW; URINE GLUCOSE (UA) NEGATIVE (NEGATIVE); URINE KETONE NEGATIVE (NEGATIVE); URINE LEUK ESTERASE NEGATIVE (NEGATIVE); URINE NITRITE NEGATIVE (NEGATIVE); URINE PROTEIN NEGATIVE (NEGATIVE); URINE UROBILINOGEN 4.0 E.U/dl mg/dL (0.2-1.0)
[2018-05-29] MEDS: CLOTRIMAZOLE 10 MG TROCHE (FP) PO SCH ×5 (05:54→22:21)
[2018-05-29] MEDS: chlordiazePOXIDE HCL 25 MG CAPSULE PO SCH ×4 (05:54→22:21)
--- NOTE | 2018-05-29 07:37 | CONSULT ---
[facility] Psychiatric Consult - Data Date of interview: 05/29/18 Admission source: [facility] Identifying data: This isn a 57 years old obese male, , father of three , living alone, on SSI support, with history of multiple medical problems, with history of Bipolar Disorder, with n o psychiatric hospitalization history, Patient is here reporting withdrawal symptoms, reports Cocaine, Cannabis, Heroin , Alcohol and Nicotine dependence, patient is seeking detox. Denies suyicidal, homicidal history. Substance Abuse History: Smoking history: Current every day smoker. Have you smoked in the past 12 months: Yes. Aproximately how many cigarettes per day: 20. Hx Chewing Tobacco Use: No. Initiated information on smoking cessation: Yes. 'Breaking Loose' booklet given: 05/28/18. - Substance & Tx. History. Hx Alcohol Use: Yes. Hx Substance Use: Yes. Substance Use Type: Alcohol, Cocaine , Heroin, Marijuana. Hx Substance Use Treatment: Yes (detox, rehab, past [facility]) . - Substances Abused. Alcohol. Route: Oral. Frequency: Daily. Amount used: liquor- 2 pints, beer- 1 six pack. Age of first use: 21. Date of Last Use: 05/28/18. Heroin. Route: Inhalation. Frequency: Daily. Amount used: 7 bags. Age of first use: 14. Date of Last Use: 05/27/18. Cocaine. Route : Smoking. Age of first use: 14. Marijuana/Hashish. Route: Smoking. Age of first use: 10 Medical History: Obesity, GERD, History of positive PPD, HIV, Pedalm Edema, Psychiatric History: Patient reports history of depression and anxiety, as per computer there is a history of Bipolar Disorder, MECHE, MDD,. Patient reports no suicidal, homicidal history, reports taking prior to admission: Trazodone 50mg po qhs. Prozac 40mg poqd Physical/Sexual Abuse/Trauma History: Denies Additional Comment: Trazodone 50mg po qhs. Prozac 40mg poqd Mental Status Exam - Mental Status Exam Alert and Oriented to: Place, Person Cognitive Function: Fair Patient Appearance: Unkempt Mood: Apprehensive Affect: Mood Congruent Patient Behavior: Cooperative Speech Pattern: Appropriate Voice Loudness: Mildly Soft/Quiet Thought Process: Circumstantial, Goal Oriented Thought Disorder: Being Controlled Hallucinations: Denies Suicidal Ideation: Denies Homicidal Ideation: Denies Insight/Judgement: Fair Sleep: Difficulty falling asleep Appetite: Weight gain Muscle strength/Tone: Mild Hypotonicity Gait/Station: Shuffling Additional Comments: Trazodone 50mg po qhs. Prozac 40mg poqd Psychiatric Findings - Problem List ([place] 1, 2,3) (1) Alcohol dependence with uncomplicated withdrawal Current Visit: Yes Status: Acute (2) Opioid dependence with withdrawal Current Visit: Yes Status: Acute (3) Cannabis dependence Current Visit: Yes Status: Chronic (4) Cocaine dependence Current Visit: Yes Status: Chronic Qualifiers: Substance use status: uncomplicated Qualified Code(s): F14.20 - Cocaine dependence, uncomplicated (5) Human immunodeficiency virus infection Current Visit: Yes Status: Chronic (6) Nicotine dependence Current Visit: Yes Status: Chronic Qualifiers: Nicotine product type: cigarettes Substance use status: uncomplicated Qualified Code(s): F17.210 - Nicotine dependence, cigarettes, uncomplicated (7) Pedal edema Current Visit: Yes Status: Chronic (8) Alcohol dependence Current Visit: No Status: Acute (9) Obese Current Visit: No Status: Acute Qualifiers: Obesity type: unspecified obesity type Obesity classification: adult class 1 (BMI 30 - 34.9) Serious obesity comorbidity presence: unspecified whether serious comorbidity present (10) Gastroesophageal reflux disease Current Visit: No Status: Chronic Qualifiers: Esophagitis presence: without esophagitis Qualified Code(s): K21.9 - Gastro -esophageal reflux disease without esophagitis (11) History of positive PPD Current Visit: No Status: Chronic (12) Methadone maintenance therapy patient Current Visit: No Status: Chronic Comment: 150 mg dose, pending verified - Initial Treatment Plan Initial Treatment Plan: Trazodone 50mg po qhs. Prozac 40mg poqd
[2018-05-29] MEDS ORDERED: METHADONE HCL 10 MG TABLET (FOR DETOX USE ONLY) PO SCH (10:00)
[2018-05-29] MEDS: PRENATAL VITAMINS W/ FOLIC ACID TABLET (FP) PO SCH (10:07)
[2018-05-29] MEDS: NICOTINE 21 MG/24 HOURS TOPICAL PATCH TD SCH (10:07)
[2018-05-29] MEDS: FLUoxetine HCL 20 MG CAPSULE (FP) PO SCH (10:07)
[2018-05-29] MEDS: ASPIRIN COATED 81 MG TABLET.EC PO SCH (10:07)
[2018-05-29] MEDS: SULFAMETHOXAZOLE/TRIMETHOPRIM 800MG/160MG D.S. TABLET PO SCH (10:07)
--- NOTE | 2018-05-29 10:14 | PN ---
[facility] CIWA - CIWA Score Nausea/Vomitin-No Nausea/No Vomiting Muscle Tremors: 4-Moderate,w/Arms Extend Anxiety: 3 Agitation: 3 Paroxysmal Sweats: 3 Orientation: 0-Oriented Tacttile Disturbances: 0-None Auditory Disturbances: 0-None Visual Disturbances: 0-None Headache: 0-None Present CIWA-Ar Total Score: 13 [facility] COWS - Scale Resting Pulse: 0= [place] 80 or Below Sweatin=Flushed/Facial Moisture Restless Observation: 1= Difficult to Sit Still Pupil Size: 0= Normal to Room Light Bone or Joint Aches: 1= Mild Discomfort Runny Nose/ Eye Tearin= Runny Nose/Eyes GI Upset > 30mins: 1= Stomach Cramp Tremor Observation of Outstretched Hands: 1= Tremor [place], Not Seen Yawning Observation: 1= 1-2x During Session Anxiety or Irritability: 2=Irritable/Anxious Goose Flesh Skin: 0=Smooth Skin COWS Score: 11 [facility] Progress Note (SOAP) Subjective: sweats shakes body aches interrupted sleep cough Objective: 05/29/18 10:18 Vital Signs Temperature 98.2 F 05/29/18 09:49 Pulse Rate 78 05/29/18 09:49 Respiratory Rate 18 05/29/18 09:49 Blood Pressure 140/65 05/29/18 09:49 O2 Sat by Pulse Oximetry (%) Laboratory Tests 05/28/18 23:18 Urine Color Yellow Urine Appearance Clear Urine pH 6.0 Ur Specific [place] 1.013 Urine Protein Negative Urine Glucose (UA) Negative Urine Ketones Negative Urine Blood Negative Urine Nitrite Negative Urine Bilirubin Negative Urine Urobilinogen 4.0 e.u/dl Ur Leukocyte Esterase Negative rest of labs pending aaox3 ambulating no acute distress Assessment: 05/29/18 10:18 withdrawal sx Plan: continue detox increase fluids robutussin ordered labs pending
[2018-05-29] MEDS ORDERED: SODIUM CHLORIDE NASAL SPRAY 44 ML BOTTLE NS PRN (10:22)
[2018-05-29 11:05] LABS: ALBUMIN 2.4 g/dl (3.4-5.0); ALK PHOS 86 U/L (45-117); ANION GAP 6 MMOL/L (8-16); BILIRUBIN,TOTAL 0.6 mg/dL (0.2-1); BLOOD UREA NITROGEN 8 mg/dL (7-18); CALCIUM 7.9 mg/dL (8.5-10.1); CHLORIDE 99 mmol/L (98-107); CO2 32 mmol/L (21-32); CREATININE 0.6 mg/dL (0.55-1.3); GLUCOSE,RANDOM 98 mg/dL (74-106); POTASSIUM 3.6 mmol/L (3.5-5.1); SGOT/AST 57 U/L (15-37); SGPT/ALT 33 U/L (13-61); SODIUM 137 mmol/L (136-145); TOT PROT 7.2 g/dl (6.4-8.2)
[2018-05-29 11:15] LABS: HEMATOCRIT 31.6 % (35.4-49); HEMOGLOBIN 10.6 GM/dL (11.7-16.9); MCH 26.5 pg (25.7-33.7); MCHC 33.5 g/dl (32.0-35.9); MEAN PLT VOLUME 11.2 fl (7.5-11.1); PLATELET COUNT 97 K/MM3 (134-434); RDW 17.2 % (11.9-15.9)
[2018-05-29 11:29] LABS: WHITE BLOOD COUNT 1.9 K/mm3 (4.0-10.0)
--- NOTE | 2018-05-29 12:28 | EKG ---
Test Reason : Blood Pressure : / mmHG Vent. Rate : 076 BPM Atrial Rate : 076 BPM P-R Int : 160 ms QRS Dur : 088 ms QT Int : 398 ms P-R-T Axes : 048 058 053 degrees QTc Int : 447 ms SINUS RHYTHM WITH PREMATURE ATRIAL COMPLEXES OTHERWISE NORMAL ECG WHEN COMPARED WITH ECG OF 17-AUG-2017 09:46, PREMATURE ATRIAL COMPLEXES ARE NOW PRESENT Confirmed by OLIMPIA HOWARD, WAQAS ([id number]) on 05/29/2018 12:27:39 PM Referred By: Confirmed By:WAQAS DOAN MD
[2018-05-29] MEDS: THIAMINE HCL 100 MG TABLET (FP) PO SCH (22:20)
[2018-05-29] MEDS: traZODone HCL 50 MG TABLET (FP) PO SCH (22:21)
[2018-05-30] MEDS: chlordiazePOXIDE HCL 25 MG CAPSULE PO SCH ×3 (05:40→17:39)
[2018-05-30] MEDS: CLOTRIMAZOLE 10 MG TROCHE (FP) PO SCH ×5 (05:42→22:18)
[2018-05-30] MEDS: ASPIRIN COATED 81 MG TABLET.EC PO SCH (10:05)
[2018-05-30] MEDS: PRENATAL VITAMINS W/ FOLIC ACID TABLET (FP) PO SCH (10:05)
[2018-05-30] MEDS: NICOTINE 21 MG/24 HOURS TOPICAL PATCH TD SCH (10:05)
[2018-05-30] MEDS: METHADONE HCL 5 MG TABLET (FOR DETOX USE ONLY) PO SCH (10:05)
[2018-05-30] MEDS: FLUoxetine HCL 20 MG CAPSULE (FP) PO SCH (10:05)
[2018-05-30] MEDS: SULFAMETHOXAZOLE/TRIMETHOPRIM 800MG/160MG D.S. TABLET PO SCH (10:05)
[2018-05-30] MEDS: IBUPROFEN 400 MG TABLET (FP) PO PRN (10:10)
[2018-05-30 10:12] LABS: BASO % 0.5 % (0-2.0); EOS % 2.8 % (0-4.5); HEMATOCRIT 37.1 % (35.4-49); HEMOGLOBIN 12.3 GM/dL (11.7-16.9); LYMPH % 16.4 % (8-40); MCH 26.4 pg (25.7-33.7); MCHC 33.1 g/dl (32.0-35.9); MEAN CELL VOLUME 79.7 fl (80-96); MEAN PLT VOLUME 11.2 fl (7.5-11.1); MONO % 15.3 % (3.8-10.2); PLATELET COUNT 106 K/MM3 (134-434); RBC 4.66 M/mm3 (4.00-5.60); RDW 17.6 % (11.9-15.9); WHITE BLOOD COUNT 2.1 K/mm3 (4.0-10.0)
--- NOTE | 2018-05-30 10:36 | PN ---
[facility] CIWA - CIWA Score Nausea/Vomitin-No Nausea/No Vomiting Muscle Tremors: 3 Anxiety: 3 Agitation: 3 Paroxysmal Sweats: 2 Orientation: 0-Oriented Tacttile Disturbances: 0-None Auditory Disturbances: 0-None Visual Disturbances: 0-None Headache: 0-None Present CIWA-Ar Total Score: 11 S COWS - Scale Resting Pulse: 1= [place] 81-100 Sweatin=Flushed/Facial Moisture Restless Observation: 1= Difficult to Sit Still Pupil Size: 0= Normal to Room Light Bone or Joint Aches: 2= Severe Diffuse Aches Runny Nose/ Eye Tearin= Nasal Congestion GI Upset > 30mins: 0= None Tremor Observation of Outstretched Hands: 1= Tremor [place], Not Seen Yawning Observation: 1= 1-2x During Session Anxiety or Irritability: 1=Feels Anxious/Irritable Goose Flesh Skin: 0=Smooth Skin COWS Score: 10 S Progress Note (SOAP) Subjective: chills sweats irritable agitation body aches Objective: 05/30/18 10:35 Vital Signs Temperature 97.5 F L 05/30/18 09:04 Pulse Rate 89 05/30/18 09:04 Respiratory Rate 18 05/30/18 09:04 Blood Pressure 127/69 05/30/18 09:04 O2 Sat by Pulse Oximetry (%) Laboratory Tests 05/28/18 05/29/18 05/29/18 23:18 07:30 07:30 WBC 1.9 L* RBC 4.00 Hgb 10.6 L Hct 31.6 L D MCV 79.0 L MCH 26.5 MCHC 33.5 RDW 17.2 H Plt Count 97 L MPV 11.2 H Absolute Neuts (auto) Neutrophils % Lymphocytes % Monocytes % Eosinophils % Basophils % Nucleated RBC % Sodium 137 Potassium 3.6 Chloride 99 Carbon Dioxide 32 Anion Gap 6 L BUN 8 Creatinine 0.6 Creat Clearance w eGFR > 60 Random Glucose 98 Calcium 7.9 L Total Bilirubin 0.6 AST 57 H ALT 33 Alkaline Phosphatase 86 Total Protein 7.2 Albumin 2.4 L Urine Color Yellow Urine Appearance Clear Urine pH 6.0 Ur Specific [place] 1.013 Urine Protein Negative Urine Glucose (UA) Negative Urine Ketones Negative Urine Blood Negative Urine Nitrite Negative Urine Bilirubin Negative Urine Urobilinogen 4.0 e.u/dl Ur Leukocyte Esterase Negative RPR Titer 05/29/18 05/30/18 07:30 07:00 WBC 2.1 L RBC 4.66 Hgb 12.3 Hct 37.1 D MCV 79.7 L MCH 26.4 MCHC 33.1 RDW 17.6 H Plt Count 106 L MPV 11.2 H Absolute Neuts (auto) 1.4 L Neutrophils % 65.0 Lymphocytes % 16.4 Monocytes % 15.3 H Eosinophils % 2.8 Basophils % 0.5 Nucleated RBC % 0 Sodium Potassium Chloride Carbon Dioxide Anion Gap BUN Creatinine Creat Clearance w eGFR Random Glucose Calcium Total Bilirubin AST ALT Alkaline Phosphatase Total Protein Albumin Urine Color Urine Appearance Urine pH Ur Specific [place] Urine Protein Urine Glucose (UA) Urine Ketones Urine Blood Urine Nitrite Urine Bilirubin Urine Urobilinogen Ur Leukocyte Esterase RPR Titer Nonreactive repeated labs improving aaox3 ambulating no acute distress Assessment: 05/30/18 10:36 withdrawal sx Plan: continue detox increase fluids
[2018-05-30 11:22] LABS: ALBUMIN 2.6 g/dl (3.4-5.0); ALK PHOS 93 U/L (45-117); ANION GAP 5 MMOL/L (8-16); BILIRUBIN,TOTAL 0.7 mg/dL (0.2-1); BLOOD UREA NITROGEN 8 mg/dL (7-18); CALCIUM 8.4 mg/dL (8.5-10.1); CHLORIDE 99 mmol/L (98-107); CO2 31 mmol/L (21-32); CREATININE 0.7 mg/dL (0.55-1.3); GLUCOSE,RANDOM 104 mg/dL (74-106); POTASSIUM 3.6 mmol/L (3.5-5.1); SGOT/AST 45 U/L (15-37); SGPT/ALT 33 U/L (13-61); SODIUM 136 mmol/L (136-145)
[2018-05-30] MEDS: THIAMINE HCL 100 MG TABLET (FP) PO SCH (22:17)
[2018-05-30] MEDS: chlordiazePOXIDE 5 MG CAPSULE PO SCH (22:18)
[2018-05-30] MEDS: traZODone HCL 50 MG TABLET (FP) PO SCH (22:18)
[2018-05-31] MEDS: chlordiazePOXIDE 5 MG CAPSULE PO SCH ×3 (05:17→18:11)
[2018-05-31] MEDS: CLOTRIMAZOLE 10 MG TROCHE (FP) PO SCH ×5 (05:17→22:04)
[2018-05-31] MEDS: PRENATAL VITAMINS W/ FOLIC ACID TABLET (FP) PO SCH (10:33)
[2018-05-31] MEDS: ASPIRIN COATED 81 MG TABLET.EC PO SCH (10:33)
[2018-05-31] MEDS: METHADONE HCL 5 MG TABLET (FOR DETOX USE ONLY) PO SCH (10:33)
[2018-05-31] MEDS: FLUoxetine HCL 20 MG CAPSULE (FP) PO SCH (10:33)
[2018-05-31] MEDS: NICOTINE 21 MG/24 HOURS TOPICAL PATCH TD SCH (10:33)
[2018-05-31] MEDS: SULFAMETHOXAZOLE/TRIMETHOPRIM 800MG/160MG D.S. TABLET PO SCH (10:33)
[2018-05-31] MEDS: IBUPROFEN 400 MG TABLET (FP) PO PRN (10:39)
--- NOTE | 2018-05-31 11:06 | PN ---
[facility] Progress Note (SOAP) Subjective: sweats interrupted sleep body aches Objective: 05/31/18 11:05 Vital Signs Temperature 97.7 F 05/31/18 06:00 Pulse Rate 87 05/31/18 06:00 Respiratory Rate 18 05/31/18 06:00 Blood Pressure 119/59 L 05/31/18 06:00 O2 Sat by Pulse Oximetry (%) aaox3 ambulating no acute distress Assessment: 05/31/18 11:06 withdrawal sx Plan: continue detox increase fluids
[2018-05-31] MEDS: chlordiazePOXIDE HCL 10 MG CAPSULE PO SCH (22:04)
[2018-05-31] MEDS: traZODone HCL 50 MG TABLET (FP) PO SCH (22:04)
[2018-05-31] MEDS: THIAMINE HCL 100 MG TABLET (FP) PO SCH (22:04)
[2018-06-01] MEDS: chlordiazePOXIDE HCL 10 MG CAPSULE PO SCH ×3 (05:34→18:08)
[2018-06-01] MEDS: CLOTRIMAZOLE 10 MG TROCHE (FP) PO SCH ×5 (05:34→22:15)
[2018-06-01] MEDS: IBUPROFEN 400 MG TABLET (FP) PO PRN ×2 (05:36→18:09)
[2018-06-01] MEDS ORDERED: METHADONE HCL 10 MG TABLET (FOR DETOX USE ONLY) PO SCH (10:00)
[2018-06-01] MEDS: FLUoxetine HCL 20 MG CAPSULE (FP) PO SCH (10:12)
[2018-06-01] MEDS: PRENATAL VITAMINS W/ FOLIC ACID TABLET (FP) PO SCH (10:12)
[2018-06-01] MEDS: ASPIRIN COATED 81 MG TABLET.EC PO SCH (10:12)
[2018-06-01] MEDS: NICOTINE 21 MG/24 HOURS TOPICAL PATCH TD SCH (10:13)
[2018-06-01] MEDS: SULFAMETHOXAZOLE/TRIMETHOPRIM 800MG/160MG D.S. TABLET PO SCH (10:13)
--- NOTE | 2018-06-01 13:11 | PN ---
S Progress Note (SOAP) Subjective: Generalized weakness, tremors, sweats, headache and periods of dizziness Objective: 06/01/18 13:10 Vital Signs - 8 hr 06/01/18 06/01/18 06:57 09:26 Temperature 98.1 F 98.2 F Pulse Rate 82 92 H Respiratory 18 16 Rate Blood Pressure 138/69 125/72 Laboratory Last Values WBC 2.1 K/mm3 (4.0-10.0) L 05/30/18 07:00 RBC 4.66 M/mm3 (4.00-5.60) 05/30/18 07:00 Hgb 12.3 GM/dL (11.7-16.9) 05/30/18 07:00 Hct 37.1 % (35.4-49) D 05/30/18 07:00 MCV 79.7 fl (80-96) L 05/30/18 07:00 MCH 26.4 pg (25.7-33.7) 05/30/18 07:00 MCHC 33.1 g/dl (32.0-35.9) 05/30/18 07:00 RDW 17.6 % (11.9-15.9) H 05/30/18 07:00 Plt Count 106 K/MM3 (134-434) L 05/30/18 07:00 MPV 11.2 fl (7.5-11.1) H 05/30/18 07:00 Absolute Neuts (auto) 1.4 K/mm3 (1.5-8.0) L 05/30/18 07:00 Neutrophils % 65.0 % (42.8-82.8) 05/30/18 07:00 Lymphocytes % 16.4 % (8-40) 05/30/18 07:00 Monocytes % 15.3 % (3.8-10.2) H 05/30/18 07:00 Eosinophils % 2.8 % (0-4.5) 05/30/18 07:00 Basophils % 0.5 % (0-2.0) 05/30/18 07:00 Nucleated RBC % 0 % (0-0) 05/30/18 07:00 Sodium 136 mmol/L (136-145) 05/30/18 07:00 Potassium 3.6 mmol/L (3.5-5.1) 05/30/18 07:00 Chloride 99 mmol/L (98-107) 05/30/18 07:00 Carbon Dioxide 31 mmol/L (21-32) 05/30/18 07:00 Anion Gap 5 MMOL/L (8-16) L 05/30/18 07:00 BUN 8 mg/dL (7-18) 05/30/18 07:00 Creatinine 0.7 mg/dL (0.55-1.3) 05/30/18 07:00 Creat Clearance w eGFR > 60 (>60) 05/30/18 07:00 Random Glucose 104 mg/dL (74-106) 05/30/18 07:00 Calcium 8.4 mg/dL (8.5-10.1) L 05/30/18 07:00 Total Bilirubin 0.7 mg/dL (0.2-1) 05/30/18 07:00 AST 45 U/L (15-37) H 05/30/18 07:00 ALT 33 U/L (13-61) 05/30/18 07:00 Alkaline Phosphatase 93 U/L (45-117) 05/30/18 07:00 Total Protein 8.0 g/dl (6.4-8.2) 05/30/18 07:00 Albumin 2.6 g/dl (3.4-5.0) L 05/30/18 07:00 Urine Color Yellow 05/28/18 23:18 Urine Appearance Clear 05/28/18 23:18 Urine pH 6.0 (5.0-8.0) 05/28/18 23:18 Ur Specific [place] 1.013 (1.010-1.035) 05/28/18 23:18 Urine Protein Negative (NEGATIVE) 05/28/18 23:18 Urine Glucose (UA) Negative (NEGATIVE) 05/28/18 23:18 Urine Ketones Negative (NEGATIVE) 05/28/18 23:18 Urine Blood Negative (NEGATIVE) 05/28/18 23:18 Urine Nitrite Negative (NEGATIVE) 05/28/18 23:18 Urine Bilirubin Negative (<2.0 mg/dL) 05/28/18 23:18 Urine Urobilinogen 4.0 e.u/dl mg/dL (0.2-1.0) 05/28/18 23:18 Ur Leukocyte Esterase Negative (NEGATIVE) 05/28/18 23:18 RPR Titer Nonreactive (NONREACTIVE) 05/29/18 07:30 Labs noted Assessment: 06/01/18 13:11 Withdrawal sx Plan: Continue detox
[2018-06-01] MEDS: traZODone HCL 50 MG TABLET (FP) PO SCH (22:15)
[2018-06-01] MEDS: ACETAMINOPHEN 325 MG TABLET (FP) PO PRN (22:15)
[2018-06-01] MEDS: THIAMINE HCL 100 MG TABLET (FP) PO SCH (22:15)
[2018-06-02] MEDS ORDERED: METHADONE HCL 5 MG TABLET (FOR DETOX USE ONLY) PO SCH (06:00)
[2018-06-02 06:57] VITALS: TEMP 98.2
[2018-06-02] MEDS: CLOTRIMAZOLE 10 MG TROCHE (FP) PO SCH ×2 (07:13→10:15)
[2018-06-02 09:54] VITALS: BP 121/73; PULSE 98
[2018-06-02] MEDS: SULFAMETHOXAZOLE/TRIMETHOPRIM 800MG/160MG D.S. TABLET PO SCH (10:13)
[2018-06-02] MEDS: PRENATAL VITAMINS W/ FOLIC ACID TABLET (FP) PO SCH (10:13)
[2018-06-02] MEDS: ASPIRIN COATED 81 MG TABLET.EC PO SCH (10:13)
[2018-06-02] MEDS: FLUoxetine HCL 20 MG CAPSULE (FP) PO SCH (10:13)
[2018-06-02] MEDS: NICOTINE 21 MG/24 HOURS TOPICAL PATCH TD SCH (10:13)
[2018-06-02] MEDS: ACETAMINOPHEN 325 MG TABLET (FP) PO PRN (10:15)
--- NOTE | 2018-06-02 16:03 | DS ---
[facility] Detox Discharge Summary Admission Date: 05/28/18 Discharge Date: 06/02/18 - History Present History: Alcohol Dependence, Opioid Dependence - Physical Exam Results Vital Signs: Vital Signs Temperature 98.2 F 06/02/18 09:53 Pulse Rate 98 H 06/02/18 09:53 Respiratory Rate 16 06/02/18 09:53 Blood Pressure 121/73 06/02/18 09:53 O2 Sat by Pulse Oximetry (%) Pertinent Admission Physical Exam Findings: alcohol and opiate withdrawal sx Vital Signs Temperature 98.2 F 06/02/18 09:53 Pulse Rate 98 H 06/02/18 09:53 Respiratory Rate 16 06/02/18 09:53 Blood Pressure 121/73 06/02/18 09:53 O2 Sat by Pulse Oximetry (%) Laboratory Last Values WBC 2.1 K/mm3 (4.0-10.0) L 05/30/18 07:00 RBC 4.66 M/mm3 (4.00-5.60) 05/30/18 07:00 Hgb 12.3 GM/dL (11.7-16.9) 05/30/18 07:00 Hct 37.1 % (35.4-49) D 05/30/18 07:00 MCV 79.7 fl (80-96) L 05/30/18 07:00 MCH 26.4 pg (25.7-33.7) 05/30/18 07:00 MCHC 33.1 g/dl (32.0-35.9) 05/30/18 07:00 RDW 17.6 % (11.9-15.9) H 05/30/18 07:00 Plt Count 106 K/MM3 (134-434) L 05/30/18 07:00 MPV 11.2 fl (7.5-11.1) H 05/30/18 07:00 Absolute Neuts (auto) 1.4 K/mm3 (1.5-8.0) L 05/30/18 07:00 Neutrophils % 65.0 % (42.8-82.8) 05/30/18 07:00 Lymphocytes % 16.4 % (8-40) 05/30/18 07:00 Monocytes % 15.3 % (3.8-10.2) H 05/30/18 07:00 Eosinophils % 2.8 % (0-4.5) 05/30/18 07:00 Basophils % 0.5 % (0-2.0) 05/30/18 07:00 Nucleated RBC % 0 % (0-0) 05/30/18 07:00 Sodium 136 mmol/L (136-145) 05/30/18 07:00 Potassium 3.6 mmol/L (3.5-5.1) 05/30/18 07:00 Chloride 99 mmol/L (98-107) 05/30/18 07:00 Carbon Dioxide 31 mmol/L (21-32) 05/30/18 07:00 Anion Gap 5 MMOL/L (8-16) L 05/30/18 07:00 BUN 8 mg/dL (7-18) 05/30/18 07:00 Creatinine 0.7 mg/dL (0.55-1.3) 05/30/18 07:00 Creat Clearance w eGFR > 60 (>60) 05/30/18 07:00 Random Glucose 104 mg/dL (74-106) 05/30/18 07:00 Calcium 8.4 mg/dL (8.5-10.1) L 05/30/18 07:00 Total Bilirubin 0.7 mg/dL (0.2-1) 05/30/18 07:00 AST 45 U/L (15-37) H 05/30/18 07:00 ALT 33 U/L (13-61) 05/30/18 07:00 Alkaline Phosphatase 93 U/L (45-117) 05/30/18 07:00 Total Protein 8.0 g/dl (6.4-8.2) 05/30/18 07:00 Albumin 2.6 g/dl (3.4-5.0) L 05/30/18 07:00 Urine Color Yellow 05/28/18 23:18 Urine Appearance Clear 05/28/18 23:18 Urine pH 6.0 (5.0-8.0) 05/28/18 23:18 Ur Specific [place] 1.013 (1.010-1.035) 05/28/18 23:18 Urine Protein Negative (NEGATIVE) 05/28/18 23:18 Urine Glucose (UA) Negative (NEGATIVE) 05/28/18 23:18 Urine Ketones Negative (NEGATIVE) 12/04/18 23:18 Urine Blood Negative (NEGATIVE) 05/28/18 23:18 Urine Nitrite Negative (NEGATIVE) 05/28/18 23:18 Urine Bilirubin Negative (<2.0 mg/dL) 05/28/18 23:18 Urine Urobilinogen 4.0 e.u/dl mg/dL (0.2-1.0) 05/28/18 23:18 Ur Leukocyte Esterase Negative (NEGATIVE) 05/28/18 23:18 RPR Titer Nonreactive (NONREACTIVE) 05/29/18 07:30 lab noted - Treatment Hospital Course: Detox Protocol Followed, Detoxed Safely, Responded well, Discharged Condition Good, Rehab Referral Accepted Patient [facility] Accepted [facility] - Medication Discharge Medications: Ambulatory Orders Atazanavir [Reyataz -] 300 mg PO DAILY 08/16/17 Raltegravir [Isentress] 400 mg PO DAILY 08/16/17 traZODone HCL [Desyrel -] 50 mg PO HS 08/20/17 Aspirin [Aspirin EC] 81 mg PO DAILY #30 tablet. 08/22/17 Emtricitabine/Tenofovir [Truvada -] 1 tab PO DAILY #30 tablet 08/22/17 Fluoxetine HCl [Prozac] 40 mg PO DAILY #60 capsule 08/22/17 Ranitidine [Zantac -] 150 mg PO BID #60 tablet 08/22/17 Ritonavir [Norvir -] 100 mg PO DAILY #30 tab 08/22/17 Sulfamethoxazole/Trimethoprim [Bactrim DS -] 1 tab PO DAILY #20 tablet 06/02/18 - Diagnosis (1) Alcohol dependence with uncomplicated withdrawal Status: Acute (2) Human immunodeficiency virus infection Status: Chronic (3) Nicotine dependence Status: Acute Qualifiers: Nicotine product type: cigarettes Substance use status: in withdrawal Qualified Code(s): F17.213 - Nicotine dependence, cigarettes, with withdrawal (4) Opioid dependence with withdrawal Status: Acute - AMA Did Patient Leave Against Medical Advice: No
== END 2018-06-02 12:24 | disposition home or self-care (01) | DRG 773 ==
LOC: YASAS 15:29 → Y6N 19:04
PROC: HZ2ZZZZ Detoxification Services for Substance Abuse Treatment (ICD-10-PCS; principal; 2018-05-28)
DX: F11.23 Opioid dependence with withdrawal (principal); F10.230 Alcohol dependence with withdrawal, uncomplicated; F14.20 Cocaine dependence, uncomplicated; F12.20 Cannabis dependence, uncomplicated; F17.213 Nicotine dependence, cigarettes, with withdrawal; F33.2 Major depressive disorder, recurrent severe without psychotic features; Z21 Asymptomatic human immunodeficiency virus [HIV] infection status; B37.0 Candidal stomatitis; R60.0 Localized edema; G62.9 Polyneuropathy, unspecified; K21.9 Gastro-esophageal reflux disease without esophagitis; J06.9 Acute upper respiratory infection, unspecified; R76.11 Nonspecific reaction to tuberculin skin test without active tuberculosis; E66.9 Obesity, unspecified; Z68.28 Body mass index [BMI] 28.0-28.9, adult
CPT/HCPCS: 36415; 80053; 81003; 85025; 85027; 86593; 93005; 93010

== ENCOUNTER 2021-05-24 11:26 | Inpatient (IN) | payer OTHER ==
[2021-05-24 11:56] VITALS: BMI 19.5
[2021-05-24] MEDS ORDERED: MAGNESIUM HYDROX 2400MG/30ML ORAL SUSPENSION 30 ML CUP PO PRN (12:21)
[2021-05-24] MEDS ORDERED: ACETAMINOPHEN 325 MG TABLET (FP) PO PRN ×2 (12:21)
[2021-05-24] MEDS ORDERED: METHOCARBAMOL 500 MG TABLET PO PRN (12:21)
[2021-05-24] MEDS ORDERED: NICOTINE 10 MG CARTRIDGE (INHALER) IH PRN (12:21)
[2021-05-24] MEDS ORDERED: ONDANSETRON *ODT* 4 MG TABLET SL PRN (12:21)
[2021-05-24] MEDS ORDERED: BISMUTH SUBSALICYLATE 262 MG/15 ML BTL PO PRN (12:21)
[2021-05-24] MEDS ORDERED: chlordiazePOXIDE HCL 25 MG CAPSULE PO PRN (12:21)
[2021-05-24] MEDS ORDERED: MENTHOL/PHENOL 1 EACH UD MM PRN (12:21)
[2021-05-24] MEDS ORDERED: IBUPROFEN 400 MG TABLET (FP) PO PRN (12:21)
[2021-05-24] MEDS ORDERED: MAG HYDROX/AL HYDROX/SIMETH 30 ML UNIT-DOSE CUP PO PRN (12:21)
[2021-05-24] MEDS ORDERED: MAGNESIUM CITRATE 300 ML BOTTLE PO PRN (12:21)
[2021-05-24] MEDS ORDERED: methaDONE HCL 10 MG TABLET PO ONE (14:26)
[2021-05-24] MEDS: PRENATAL VITAMINS W/ FOLIC ACID TABLET (FP) PO SCH (15:12)
[2021-05-24] MEDS: hydrOXYzine PAMOATE 25 MG CAPSULE (FP) PO SCH ×3 (15:12→22:08)
[2021-05-24] MEDS: chlordiazePOXIDE HCL 25 MG CAPSULE PO SCH ×3 (15:19→22:08)
[2021-05-24 18:41] LABS: HEMATOCRIT 28.8 % (35.4-49); HEMOGLOBIN 9.5 GM/dL (11.7-16.9); MCH 26.8 pg (25.7-33.7); MCHC 33.1 g/dl (32.0-35.9); MEAN CELL VOLUME 80.8 fl (80-96); MEAN PLT VOLUME 8.8 fl (7.5-11.1); PLATELET COUNT 165 10^3/uL (134-434); RBC 3.56 M/mm3 (4.00-5.60); RDW 17.2 % (11.9-15.9); WHITE BLOOD COUNT 3.1 K/mm3 (4.0-10.0)
[2021-05-24 18:43] LABS: CALCIUM 8.8 mg/dL (8.5-10.1)
[2021-05-24 18:44] LABS: ALBUMIN 3.1 g/dl (3.4-5.0)
[2021-05-24 18:47] LABS: CREATININE 0.7 mg/dL (0.55-1.3)
[2021-05-24 18:49] LABS: BILIRUBIN,TOTAL 0.5 mg/dL (0.2-1); TOT PROT 9.5 g/dl (6.4-8.2)
[2021-05-24] MEDS: MELATONIN 5 MG TABLETS PO SCH (22:08)
[2021-05-24] MEDS: THIAMINE HCL 100 MG TABLET (FP) PO SCH (22:08)
[2021-05-25 05:21] VITALS: BP 148/77; PULSE 140; TEMP 102.3
[2021-05-25] MEDS ORDERED: methaDONE HCL 10 MG TABLET PO SCH (06:00)
[2021-05-25] MEDS: chlordiazePOXIDE HCL 25 MG CAPSULE PO SCH ×4 (06:44→23:16)
[2021-05-25] MEDS: hydrOXYzine PAMOATE 25 MG CAPSULE (FP) PO SCH ×5 (06:44→23:16)
[2021-05-25] MEDS: PRENATAL VITAMINS W/ FOLIC ACID TABLET (FP) PO SCH (10:54)
[2021-05-25] MEDS: MELATONIN 5 MG TABLETS PO SCH (23:15)
[2021-05-25] MEDS: THIAMINE HCL 100 MG TABLET (FP) PO SCH (23:16)
[2021-05-26] MEDS ORDERED: chlordiazePOXIDE HCL 25 MG CAPSULE PO SCH (05:00)
[2021-05-27] MEDS ORDERED: chlordiazePOXIDE HCL 10 MG CAPSULE PO PRN
[2021-05-27] MEDS ORDERED: chlordiazePOXIDE HCL 10 MG CAPSULE PO SCH (05:00)
[2021-05-28] MEDS ORDERED: chlordiazePOXIDE HCL 10 MG CAPSULE PO SCH (05:00)
[2021-05-29] MEDS ORDERED: chlordiazePOXIDE HCL 10 MG CAPSULE PO ONE (05:00)
== END 2021-05-26 00:48 | disposition short-term general hospital (02) | DRG 773 ==
LOC: YASAS 11:26 → Y6N 12:40
PROVIDERS: ADMIT Allergy & Immunology; ATTEND Allergy & Immunology
PROC: HZ2ZZZZ Detoxification Services for Substance Abuse Treatment (ICD-10-PCS; principal; 2021-05-24)
DX: F10.230 Alcohol dependence with withdrawal, uncomplicated (principal); F11.20 Opioid dependence, uncomplicated; F17.210 Nicotine dependence, cigarettes, uncomplicated; F32.A Depression, unspecified; F19.280 Other psychoactive substance dependence with psychoactive substance-induced anxiety disorder; F19.282 Other psychoactive substance dependence with psychoactive substance-induced sleep disorder; I10 Essential (primary) hypertension; B20 Human immunodeficiency virus [HIV] disease; E78.5 Hyperlipidemia, unspecified; R07.9 Chest pain, unspecified; R53.1 Weakness; R05.9 Cough, unspecified; Z86.69 Personal history of other diseases of the nervous system and sense organs
CPT/HCPCS: 36415; 80053; 85027; 86780; 87811; 93005; 93010; C9803; U0003; U0005

== ENCOUNTER 2021-05-25 07:04 | Inpatient (IN) | payer OTHER ==
[2021-05-25] MEDS ORDERED: SODIUM CHLORIDE 1,000 ML IV STA (07:59)
[2021-05-25] MEDS ORDERED: ACETAMINOPHEN 1000 MG/100 ML BAG IVPB ONE (08:00)
[2021-05-25] MEDS ORDERED: ACETAMINOPHEN INJECTION 100 ML IVPB ONE (08:15)
[2021-05-25 09:22] LABS: VENOUS BASE EXCESS 3.9 mmol/L (-2-2); VENOUS PCO2 42.8 mmHg (38-52); VENOUS PH 7.44 (7.310-7.410)
[2021-05-25 09:27] LABS: BASO % 0.1 % (0-2.0); EOS % 0.1 % (0-4.5); HEMATOCRIT 27.9 % (35.4-49); HEMOGLOBIN 9.3 GM/dL (11.7-16.9); LYMPH % 3.9 % (8-40); MCH 26.7 pg (25.7-33.7); MCHC 33.5 g/dl (32.0-35.9); MEAN CELL VOLUME 79.7 fl (80-96); MEAN PLT VOLUME 8.5 fl (7.5-11.1); MONO % 5.5 % (3.8-10.2); NEUT % 90.4 % (42.8-82.8); PLATELET COUNT 138 10^3/uL (134-434); RDW 17.4 % (11.9-15.9); WHITE BLOOD COUNT 9.1 K/mm3 (4.0-10.0)
[2021-05-25 09:33] LABS: INR 1.31 (0.83-1.09); PROTHROMBIN TIME (PATIENT) 14.7 SEC (9.7-13.0)
[2021-05-25 09:36] LABS: ACTIVATED PTT 32.1 SECONDS (25.2-36.5)
[2021-05-25] MEDS ORDERED: CEFTRIAXONE 1,000 MG in DEXTROSE 5%-WATER - 50 ML IVPB ONE (09:45)
[2021-05-25 09:47] LABS: CHLORIDE 105 mmol/L (98-107); SODIUM 140 mmol/L (136-145)
[2021-05-25 09:48] LABS: ANION GAP 9 MMOL/L (8-16); CO2 26 mmol/L (21-32)
[2021-05-25 09:49] LABS: ALBUMIN 2.8 g/dl (3.4-5.0); BLOOD UREA NITROGEN 14.9 mg/dL (7-18); CALCIUM 8.2 mg/dL (8.5-10.1); GLUCOSE,RANDOM 86 mg/dL (74-106)
[2021-05-25 09:53] LABS: CREATININE 0.7 mg/dL (0.55-1.3); SGOT/AST 18 U/L (15-37)
[2021-05-25 09:54] LABS: SGPT/ALT 14 U/L (13-61)
[2021-05-25 09:55] LABS: BILIRUBIN,TOTAL 0.4 mg/dL (0.2-1); TOT PROT 8.9 g/dl (6.4-8.2)
[2021-05-25 09:56] LABS: ALK PHOS 61 U/L (45-117)
[2021-05-25] MEDS ORDERED: cefTRIAXone SODIUM 1 GM VIAL ONE (10:04)
[2021-05-25 10:23] LABS: EPI CELLS 19 /uL (0-25.1); HYALINE CASTS 10 /uL (0-3.1); PH,URINE 5.5 (5.0-8.0); URINE APPEARANCE CLOUDY; URINE BACTERIA 109 /uL (0-1359); URINE BILIRUBIN 1+ (NEGATIVE); URINE COLOR DK YELLOW; URINE GLUCOSE (UA) NEGATIVE (NEGATIVE); URINE KETONE NEGATIVE (NEGATIVE); URINE LEUK ESTERASE NEGATIVE (NEGATIVE); URINE NITRITE NEGATIVE (NEGATIVE); URINE PROTEIN 1+ (NEGATIVE); URINE RBC 4 /uL (0-23.9); URINE WBC 18 /uL (0-25.8)
[2021-05-25] MEDS ORDERED: LORazepam 2 MG/ML SDV VIAL IVPUSH ONE (10:42)
[2021-05-25 10:47] LABS: URINE CRYSTALS FEW /hpf
[2021-05-25] MEDS ORDERED: LORazepam 2 MG/ML SDV VIAL ONE (10:49)
[2021-05-25] MEDS ORDERED: AZITHROMYCIN IVPB 500 MG in DEXTROSE 5%-WATER - 250 ML IVPB ONE (10:59)
[2021-05-25] MEDS ORDERED: AZITHROMYCIN IVPB 500 MG/250 ML BAG IVPB ONE (11:06)
[2021-05-25] MEDS ORDERED: VANCOMYCIN/WATER 1,250 MG/250 ML BAG IVPB ONE (11:53)
[2021-05-25] MEDS ORDERED: VANCOMYCIN 1 GRAM (PRE-DOCKED) 1,000 MG/250 ML BAG IVPB ONE (12:33)
[2021-05-25] MEDS ORDERED: diazePAM 5 MG TABLET PO PRN (13:51)
[2021-05-25] MEDS: SODIUM CHLORIDE 1,000 ML IV SCH (13:57)
[2021-05-25] MEDS: ENOXAPARIN NA (PORCINE) 40 MG/0.4 ML DISP.SYRIN SQ SCH (14:00)
[2021-05-25] MEDS ORDERED: LACTATED RINGERS SOLUTION 1,000 ML/1,000 ML INFUS.BAG IV SCH (14:30)
[2021-05-25] MEDS ORDERED: diazePAM 5 MG TABLET ONE ×2 (17:28→23:23)
[2021-05-25] MEDS ORDERED: PIPERACILLIN/TAZOB 3.375 GM 3.375 GM/50 ML BAG IVPB ONE (17:29)
[2021-05-25] MEDS: diazePAM 5 MG TABLET PO SCH ×2 (17:39→23:29)
[2021-05-25] MEDS: PIPERACILLIN/TAZOB 3.375 GM 3.375 GM in DEXTROSE 5%-WATER - 50 ML IVPB SCH (18:00)
[2021-05-26] MEDS ORDERED: PIPERACILLIN/TAZOB 3.375 GM 3.375 GM/50 ML BAG IVPB ONE ×2 (02:51→09:58)
[2021-05-26] MEDS: PIPERACILLIN/TAZOB 3.375 GM 3.375 GM in DEXTROSE 5%-WATER - 50 ML IVPB SCH ×3 (02:55→17:23)
[2021-05-26] MEDS ORDERED: diazePAM 5 MG TABLET ONE ×4 (02:56→11:22)
[2021-05-26] MEDS: diazePAM 5 MG TABLET PO SCH ×4 (06:27→22:01)
[2021-05-26] MEDS ORDERED: VANCOMYCIN 1 GRAM (PRE-DOCKED) 1,000 MG/250 ML BAG IVPB ONE (09:56)
[2021-05-26] MEDS ORDERED: AZITHROMYCIN IVPB 500 MG/250 ML BAG IVPB ONE (09:57)
[2021-05-26] MEDS ORDERED: ENOXAPARIN NA (PORCINE) 40 MG/0.4 ML DISP.SYRIN SQ ONE (09:57)
[2021-05-26] MEDS ORDERED: CEFTRIAXONE 1 GM in DEXTROSE 5%-WATER - 50 ML IVPB SCH (10:00)
[2021-05-26] MEDS: ENOXAPARIN NA (PORCINE) 40 MG/0.4 ML DISP.SYRIN SQ SCH (10:06)
[2021-05-26] MEDS: VANCOMYCIN 1 GM in D5W (PRE-DOCKED) 1,000 MG/250 ML IVPB SCH (10:53)
[2021-05-26] MEDS: AZITHROMYCIN IVPB 500 MG/250 ML BAG IVPB SCH (13:03)
[2021-05-26] MEDS: SODIUM CHLORIDE 1,000 ML IV SCH (13:22)
[2021-05-26] MEDS ORDERED: PIPERACILLIN/TAZOBACTAM 3.375 GM VIAL IVPB ONE (17:12)
[2021-05-26] MEDS ORDERED: DEXTROSE 5%-WATER - 50 ML IVPB ONE (17:12)
[2021-05-27] MEDS ORDERED: DEXTROSE 5%-WATER - 50 ML IVPB ONE ×3 (00:52→17:11)
[2021-05-27] MEDS ORDERED: PIPERACILLIN/TAZOBACTAM 3.375 GM VIAL IVPB ONE ×3 (00:52→17:10)
[2021-05-27] MEDS: PIPERACILLIN/TAZOB 3.375 GM 3.375 GM in DEXTROSE 5%-WATER - 50 ML IVPB SCH ×3 (01:07→17:43)
[2021-05-27] MEDS: diazePAM 5 MG TABLET PO SCH ×3 (05:09→21:27)
[2021-05-27] MEDS: SODIUM CHLORIDE 1,000 ML IV SCH ×2 (06:20→17:42)
[2021-05-27] MEDS: ENOXAPARIN NA (PORCINE) 40 MG/0.4 ML DISP.SYRIN SQ SCH (10:33)
[2021-05-27] MEDS: VANCOMYCIN 1 GM in D5W (PRE-DOCKED) 1,000 MG/250 ML IVPB SCH (10:35)
[2021-05-27] MEDS: AZITHROMYCIN IVPB 500 MG/250 ML BAG IVPB SCH (10:35)
[2021-05-27 20:03] VITALS: BMI 17.1
[2021-05-27] MEDS: CHLORHEXIDINE GLUCONATE 0.12% 15ML CUP MM SCH (21:27)
[2021-05-27] MEDS ORDERED: PT OWN MED DRAWER 7, Y5N ONE (22:11)
[2021-05-28] MEDS ORDERED: PIPERACILLIN/TAZOBACTAM 3.375 GM VIAL IVPB ONE ×3 (01:15→17:24)
[2021-05-28] MEDS ORDERED: DEXTROSE 5%-WATER - 50 ML IVPB ONE ×3 (01:16→17:25)
[2021-05-28] MEDS: PIPERACILLIN/TAZOB 3.375 GM 3.375 GM in DEXTROSE 5%-WATER - 50 ML IVPB SCH ×3 (01:21→17:34)
[2021-05-28] MEDS: SODIUM CHLORIDE 1,000 ML IV SCH ×2 (01:24→12:34)
[2021-05-28] MEDS: diazePAM 5 MG TABLET PO SCH ×2 (05:39→17:33)
[2021-05-28 10:26] LABS: HEMATOCRIT 25.1 % (35.4-49); HEMOGLOBIN 8.4 GM/dL (11.7-16.9); MCH 26.9 pg (25.7-33.7); MCHC 33.4 g/dl (32.0-35.9); MEAN CELL VOLUME 80.5 fl (80-96); MEAN PLT VOLUME 9.2 fl (7.5-11.1); PLATELET COUNT 118 10^3/uL (134-434); RBC 3.12 M/mm3 (4.00-5.60); RDW 17.5 % (11.9-15.9); WHITE BLOOD COUNT 6.9 K/mm3 (4.0-10.0)
[2021-05-28] MEDS ORDERED: PT OWN MED DRAWER 7, Y5N ONE ×2 (10:43→17:22)
[2021-05-28] MEDS: MULTIVITAMINS THER W-MINERALS COMBO TABLET (FP) PO SCH (10:52)
[2021-05-28] MEDS: CHLORHEXIDINE GLUCONATE 0.12% 15ML CUP MM SCH ×2 (10:52→21:56)
[2021-05-28] MEDS: ENOXAPARIN NA (PORCINE) 40 MG/0.4 ML DISP.SYRIN SQ SCH (10:52)
[2021-05-28] MEDS: VANCOMYCIN 1 GM in D5W (PRE-DOCKED) 1,000 MG/250 ML IVPB SCH (10:52)
[2021-05-28 11:16] LABS: CALCIUM 7.9 mg/dL (8.5-10.1)
[2021-05-28 11:17] LABS: ALBUMIN 2.2 g/dl (3.4-5.0); BLOOD UREA NITROGEN 6.8 mg/dL (7-18); MAGNESIUM 1.7 mg/dL (1.8-2.4)
[2021-05-28 11:20] LABS: CREATININE 0.5 mg/dL (0.55-1.3)
[2021-05-28 11:21] LABS: TOT PROT 7.5 g/dl (6.4-8.2)
[2021-05-28 11:22] LABS: BILIRUBIN,TOTAL 0.4 mg/dL (0.2-1)
[2021-05-28 11:44] LABS: ANISOCYTOSIS 3+; MACROCYTOSIS 0; PLATELET ESTIMATE DECREASED
[2021-05-28] MEDS ORDERED: POTASSIUM CHLORIDE TABS 20 MEQ TABLET.ER (FP) PO ONE ×2 (15:00→16:30)
[2021-05-29] MEDS ORDERED: DEXTROSE 5%-WATER - 50 ML IVPB ONE ×3 (00:30→15:34)
[2021-05-29] MEDS ORDERED: PIPERACILLIN/TAZOBACTAM 3.375 GM VIAL IVPB ONE ×3 (00:30→15:34)
[2021-05-29] MEDS: PIPERACILLIN/TAZOB 3.375 GM 3.375 GM in DEXTROSE 5%-WATER - 50 ML IVPB SCH ×3 (01:01→17:10)
[2021-05-29] MEDS: SODIUM CHLORIDE 1,000 ML IV SCH ×2 (01:02→06:51)
[2021-05-29] MEDS ORDERED: diazePAM 5 MG TABLET PO ONE (06:00)
[2021-05-29] MEDS: ENOXAPARIN NA (PORCINE) 40 MG/0.4 ML DISP.SYRIN SQ SCH (10:19)
[2021-05-29] MEDS: CHLORHEXIDINE GLUCONATE 0.12% 15ML CUP MM SCH ×2 (10:19→23:55)
[2021-05-29] MEDS: MULTIVITAMINS THER W-MINERALS COMBO TABLET (FP) PO SCH (10:28)
[2021-05-29] MEDS: DEXTROSE 5%-NORMAL SALINE 1,000 ML IV SCH (15:49)
[2021-05-29] MEDS: AMINO ACIDS/PROTEIN HYDROLYS 30 ML LIQUID.PKT PO SCH (17:10)
[2021-05-29] MEDS ORDERED: PT OWN MED DRAWER 7, Y5N ONE (22:06)
[2021-05-30] MEDS ORDERED: PIPERACILLIN/TAZOBACTAM 3.375 GM VIAL IVPB ONE ×3 (00:27→17:23)
[2021-05-30] MEDS ORDERED: DEXTROSE 5%-WATER - 50 ML IVPB ONE ×3 (00:27→17:23)
[2021-05-30] MEDS: PIPERACILLIN/TAZOB 3.375 GM 3.375 GM in DEXTROSE 5%-WATER - 50 ML IVPB SCH ×3 (02:00→18:44)
[2021-05-30] MEDS: DEXTROSE 5%-NORMAL SALINE 1,000 ML IV SCH ×2 (06:18→20:46)
[2021-05-30] MEDS: ENOXAPARIN NA (PORCINE) 40 MG/0.4 ML DISP.SYRIN SQ SCH (11:35)
[2021-05-30] MEDS: CHLORHEXIDINE GLUCONATE 0.12% 15ML CUP MM SCH ×2 (11:35→21:05)
[2021-05-30] MEDS: MULTIVITAMINS THER W-MINERALS COMBO TABLET (FP) PO SCH (11:35)
[2021-05-30] MEDS: FLUoxetine HCL 20 MG CAPSULE PO SCH (11:35)
[2021-05-30] MEDS: AMINO ACIDS/PROTEIN HYDROLYS 30 ML LIQUID.PKT PO SCH ×2 (11:35→17:10)
[2021-05-31] MEDS ORDERED: PIPERACILLIN/TAZOBACTAM 3.375 GM VIAL IVPB ONE ×3 (01:08→17:32)
[2021-05-31] MEDS ORDERED: DEXTROSE 5%-WATER - 50 ML IVPB ONE ×3 (01:08→17:32)
[2021-05-31] MEDS: PIPERACILLIN/TAZOB 3.375 GM 3.375 GM in DEXTROSE 5%-WATER - 50 ML IVPB SCH ×3 (01:19→17:37)
[2021-05-31] MEDS: DEXTROSE 5%-NORMAL SALINE 1,000 ML IV SCH ×2 (01:27→17:17)
[2021-05-31] MEDS: AMINO ACIDS/PROTEIN HYDROLYS 30 ML LIQUID.PKT PO SCH ×2 (08:47→17:37)
[2021-05-31] MEDS: CHLORHEXIDINE GLUCONATE 0.12% 15ML CUP MM SCH ×2 (10:59→21:21)
[2021-05-31] MEDS: ENOXAPARIN NA (PORCINE) 40 MG/0.4 ML DISP.SYRIN SQ SCH (11:14)
[2021-05-31] MEDS: MULTIVITAMINS THER W-MINERALS COMBO TABLET (FP) PO SCH (11:16)
[2021-05-31] MEDS: FLUoxetine HCL 20 MG CAPSULE PO SCH (11:16)
[2021-05-31] MEDS ORDERED: ACETAMINOPHEN 1000 MG/100 ML BAG IVPB ONE (12:06)
[2021-05-31] MEDS: AMINO ACIDS 4.25%/D5W 1,000 ML IV SCH ×2 (12:30→22:25)
[2021-05-31] MEDS ORDERED: PT OWN MED DRAWER 7, Y5N ONE (14:00)
[2021-05-31 16:23] LABS: HEMATOCRIT 24.4 % (35.4-49); MCH 26.3 pg (25.7-33.7); MEAN CELL VOLUME 79.8 fl (80-96); MEAN PLT VOLUME 8.4 fl (7.5-11.1); PLATELET COUNT 112 10^3/uL (134-434); RBC 3.06 M/mm3 (4.00-5.60); RDW 17.5 % (11.9-15.9)
[2021-05-31 16:39] LABS: BLOOD UREA NITROGEN 5.6 mg/dL (7-18); CALCIUM 7.6 mg/dL (8.5-10.1)
[2021-05-31 16:40] LABS: MAGNESIUM 1.9 mg/dL (1.8-2.4)
[2021-05-31 16:43] LABS: CREATININE 0.5 mg/dL (0.55-1.3)
[2021-05-31 16:44] LABS: BILIRUBIN,TOTAL 0.3 mg/dL (0.2-1); TOT PROT 6.4 g/dl (6.4-8.2)
[2021-05-31 16:45] LABS: WHITE BLOOD COUNT 1.3 K/mm3 (4.0-10.0)
[2021-05-31 16:59] LABS: ALBUMIN 1.8 g/dl (3.4-5.0)
[2021-05-31 17:34] LABS: ANISOCYTOSIS 2+; MACROCYTOSIS 0; OVALOCYTE 1+; PLATELET ESTIMATE DECREASED
[2021-06-01] MEDS ORDERED: PIPERACILLIN/TAZOBACTAM 3.375 GM VIAL IVPB ONE ×3 (00:31→18:02)
[2021-06-01] MEDS ORDERED: DEXTROSE 5%-WATER - 50 ML IVPB ONE ×3 (00:31→18:02)
[2021-06-01] MEDS: PIPERACILLIN/TAZOB 3.375 GM 3.375 GM in DEXTROSE 5%-WATER - 50 ML IVPB SCH ×3 (01:04→18:38)
[2021-06-01] MEDS: CHLORHEXIDINE GLUCONATE 0.12% 15ML CUP MM SCH ×3 (11:07→23:55)
[2021-06-01] MEDS: AMINO ACIDS/PROTEIN HYDROLYS 30 ML LIQUID.PKT PO SCH ×2 (11:07→18:00)
[2021-06-01] MEDS: ENOXAPARIN NA (PORCINE) 40 MG/0.4 ML DISP.SYRIN SQ SCH (11:07)
[2021-06-01] MEDS: FLUoxetine HCL 20 MG CAPSULE PO SCH (11:07)
[2021-06-01] MEDS: MULTIVITAMINS THER W-MINERALS COMBO TABLET (FP) PO SCH (11:08)
[2021-06-01] MEDS: AMINO ACIDS 4.25%/D5W 1,000 ML IV SCH ×2 (11:18→23:15)
[2021-06-01] MEDS: DEXTROSE 5%-NORMAL SALINE 1,000 ML IV SCH (18:00)
[2021-06-02] MEDS ORDERED: DEXTROSE 5%-WATER - 50 ML IVPB ONE ×3 (02:47→17:13)
[2021-06-02] MEDS ORDERED: PIPERACILLIN/TAZOBACTAM 3.375 GM VIAL IVPB ONE ×3 (02:47→17:12)
[2021-06-02] MEDS: PIPERACILLIN/TAZOB 3.375 GM 3.375 GM in DEXTROSE 5%-WATER - 50 ML IVPB SCH ×3 (03:00→17:17)
[2021-06-02] MEDS: AMINO ACIDS 4.25%/D5W 1,000 ML IV SCH (06:48)
[2021-06-02 09:13] LABS: BASO % 0.2 % (0-2.0); EOS % 0.1 % (0-4.5); HEMOGLOBIN 8.7 GM/dL (11.7-16.9); LYMPH % 6.2 % (8-40); MCH 26.1 pg (25.7-33.7); MCHC 33.3 g/dl (32.0-35.9); MEAN CELL VOLUME 78.4 fl (80-96); MEAN PLT VOLUME 8.2 fl (7.5-11.1); MONO % 7.2 % (3.8-10.2); NEUT % 86.3 % (42.8-82.8); PLATELET COUNT 135 10^3/uL (134-434); RBC 3.32 M/mm3 (4.00-5.60); RDW 17.3 % (11.9-15.9); WHITE BLOOD COUNT 5.9 K/mm3 (4.0-10.0)
[2021-06-02 09:39] LABS: ALBUMIN 1.9 g/dl (3.4-5.0); BLOOD UREA NITROGEN 8.1 mg/dL (7-18); CALCIUM 7.5 mg/dL (8.5-10.1); MAGNESIUM 1.8 mg/dL (1.8-2.4)
[2021-06-02 09:42] LABS: BILIRUBIN,TOTAL 0.3 mg/dL (0.2-1); CREATININE 0.6 mg/dL (0.55-1.3)
[2021-06-02 09:43] LABS: TOT PROT 6.9 g/dl (6.4-8.2)
[2021-06-02] MEDS ORDERED: POTASSIUM CHLORIDE TABS 20 MEQ TABLET.ER (FP) PO SCH (10:30)
[2021-06-02] MEDS ORDERED: PT OWN MED DRAWER 7, Y5N ONE ×3 (10:46→21:09)
[2021-06-02] MEDS: AMINO ACIDS/PROTEIN HYDROLYS 30 ML LIQUID.PKT PO SCH ×2 (11:27→17:26)
[2021-06-02] MEDS: MULTIVITAMINS THER W-MINERALS COMBO TABLET (FP) PO SCH (11:28)
[2021-06-02] MEDS: FLUoxetine HCL 20 MG CAPSULE PO SCH (11:28)
[2021-06-02] MEDS: ENOXAPARIN NA (PORCINE) 40 MG/0.4 ML DISP.SYRIN SQ SCH (11:30)
[2021-06-02] MEDS: CHLORHEXIDINE GLUCONATE 0.12% 15ML CUP MM SCH ×2 (11:30→23:40)
[2021-06-02] MEDS ORDERED: POTASSIUM CHLORIDE ORAL LIQUID 20 MEQ/15 ML PO ONE (12:30)
[2021-06-02] MEDS ORDERED: ACETAMINOPHEN 1000 MG/100 ML BAG IVPB ONE (12:30)
[2021-06-02] MEDS: KCL 10 MEQ IVPB 10 MEQ/100 ML INFUS.BAG IVPB SCH ×2 (18:05→21:04)
[2021-06-02] MEDS ORDERED: ACETAMINOPHEN 325 MG TABLET (FP) PO ONE (23:15)
[2021-06-03] MEDS ORDERED: PIPERACILLIN/TAZOBACTAM 3.375 GM VIAL IVPB ONE ×2 (01:39→10:58)
[2021-06-03] MEDS ORDERED: DEXTROSE 5%-WATER - 50 ML IVPB ONE ×2 (01:39→10:58)
[2021-06-03] MEDS: PIPERACILLIN/TAZOB 3.375 GM 3.375 GM in DEXTROSE 5%-WATER - 50 ML IVPB SCH ×2 (01:47→11:06)
[2021-06-03] MEDS ORDERED: PT OWN MED DRAWER 7, Y5N ONE (10:58)
[2021-06-03] MEDS: ENOXAPARIN NA (PORCINE) 40 MG/0.4 ML DISP.SYRIN SQ SCH (11:05)
[2021-06-03] MEDS: CHLORHEXIDINE GLUCONATE 0.12% 15ML CUP MM SCH ×2 (11:05→21:00)
[2021-06-03] MEDS: MULTIVITAMINS THER W-MINERALS COMBO TABLET (FP) PO SCH (11:06)
[2021-06-03] MEDS: AMINO ACIDS/PROTEIN HYDROLYS 30 ML LIQUID.PKT PO SCH ×2 (11:06→18:14)
[2021-06-03] MEDS: FLUoxetine HCL 20 MG CAPSULE PO SCH (11:06)
[2021-06-03] MEDS: ERTAPENEM SODIUM 1 GM in SODIUM CHLORIDE 50 ML IVPB SCH (15:45)
[2021-06-04] MEDS ORDERED: PT OWN MED DRAWER 7, Y5N ONE ×3 (08:40→21:31)
[2021-06-04] MEDS: AMINO ACIDS/PROTEIN HYDROLYS 30 ML LIQUID.PKT PO SCH ×2 (08:48→17:19)
[2021-06-04] MEDS: ATOVAQUONE 750 MG/5 ML (UNIT-DOSE PACKAGING) PO SCH (08:48)
[2021-06-04] MEDS: ENOXAPARIN NA (PORCINE) 40 MG/0.4 ML DISP.SYRIN SQ SCH (09:26)
[2021-06-04] MEDS: FLUoxetine HCL 20 MG CAPSULE PO SCH (09:26)
[2021-06-04] MEDS: MULTIVITAMINS THER W-MINERALS COMBO TABLET (FP) PO SCH (09:26)
[2021-06-04] MEDS: ERTAPENEM SODIUM 1 GM in SODIUM CHLORIDE 50 ML IVPB SCH (09:26)
[2021-06-04] MEDS: CHLORHEXIDINE GLUCONATE 0.12% 15ML CUP MM SCH ×2 (09:26→21:41)
[2021-06-04 11:38] LABS: BASO % 0.4 % (0-2.0); HEMATOCRIT 28.6 % (35.4-49); HEMOGLOBIN 9.4 GM/dL (11.7-16.9); LYMPH % 8.5 % (8-40); MCH 26.1 pg (25.7-33.7); MCHC 32.7 g/dl (32.0-35.9); MEAN CELL VOLUME 79.8 fl (80-96); MEAN PLT VOLUME 8.2 fl (7.5-11.1); MONO % 9.9 % (3.8-10.2); NEUT % 80.2 % (42.8-82.8); PLATELET COUNT 180 10^3/uL (134-434); RBC 3.59 M/mm3 (4.00-5.60); RDW 17.6 % (11.9-15.9); WHITE BLOOD COUNT 4.1 K/mm3 (4.0-10.0)
[2021-06-04 12:24] LABS: ALBUMIN 2.3 g/dl (3.4-5.0); BILIRUBIN,TOTAL 0.3 mg/dL (0.2-1); BLOOD UREA NITROGEN 10.6 mg/dL (7-18); CALCIUM 8.5 mg/dL (8.5-10.1); CREATININE 0.6 mg/dL (0.55-1.3); MAGNESIUM 2.3 mg/dL (1.8-2.4); TOT PROT 8.2 g/dl (6.4-8.2)
[2021-06-04] MEDS: ACETAMINOPHEN 325 MG TABLET (FP) PO PRN (17:52)
[2021-06-05] MEDS ORDERED: PT OWN MED DRAWER 7, Y5N ONE ×2 (09:11→21:47)
[2021-06-05] MEDS: ENOXAPARIN NA (PORCINE) 40 MG/0.4 ML DISP.SYRIN SQ SCH (09:15)
[2021-06-05] MEDS: FLUoxetine HCL 20 MG CAPSULE PO SCH (09:16)
[2021-06-05] MEDS: ACETAMINOPHEN 325 MG TABLET (FP) PO PRN (09:16)
[2021-06-05] MEDS: MULTIVITAMINS THER W-MINERALS COMBO TABLET (FP) PO SCH (09:16)
[2021-06-05] MEDS: AMINO ACIDS/PROTEIN HYDROLYS 30 ML LIQUID.PKT PO SCH ×2 (09:16→19:06)
[2021-06-05] MEDS: ERTAPENEM SODIUM 1 GM in SODIUM CHLORIDE 50 ML IVPB SCH (09:17)
[2021-06-05] MEDS: ATOVAQUONE 750 MG/5 ML (UNIT-DOSE PACKAGING) PO SCH (09:18)
[2021-06-05] MEDS: CHLORHEXIDINE GLUCONATE 0.12% 15ML CUP MM SCH ×2 (09:18→21:34)
[2021-06-05 18:39] LABS: HEMATOCRIT 26.6 % (35.4-49); HEMOGLOBIN 8.8 GM/dL (11.7-16.9); MCH 26.2 pg (25.7-33.7); MEAN CELL VOLUME 79.5 fl (80-96); MEAN PLT VOLUME 7.7 fl (7.5-11.1); PLATELET COUNT 185 10^3/uL (134-434); RBC 3.34 M/mm3 (4.00-5.60); RDW 17.3 % (11.9-15.9)
[2021-06-05 18:43] LABS: WHITE BLOOD COUNT 1.7 K/mm3 (4.0-10.0)
[2021-06-05 19:02] LABS: CALCIUM 8.2 mg/dL (8.5-10.1)
[2021-06-05 19:03] LABS: ALBUMIN 2.2 g/dl (3.4-5.0); MAGNESIUM 2.3 mg/dL (1.8-2.4)
[2021-06-05 19:06] LABS: CREATININE 0.6 mg/dL (0.55-1.3)
[2021-06-05 19:08] LABS: BILIRUBIN,TOTAL 0.2 mg/dL (0.2-1); BLOOD UREA NITROGEN 15.7 mg/dL (7-18)
[2021-06-05 19:09] LABS: TOT PROT 7.8 g/dl (6.4-8.2)
[2021-06-05 19:41] LABS: ANISOCYTOSIS 1+; MACROCYTOSIS 0; PLATELET ESTIMATE NORMAL
[2021-06-06] MEDS: ATOVAQUONE 750 MG/5 ML (UNIT-DOSE PACKAGING) PO SCH (08:01)
[2021-06-06] MEDS: AMINO ACIDS/PROTEIN HYDROLYS 30 ML LIQUID.PKT PO SCH ×2 (08:01→17:39)
[2021-06-06] MEDS ORDERED: PT OWN MED DRAWER 7, Y5N ONE ×2 (10:53→20:53)
[2021-06-06] MEDS: MULTIVITAMINS THER W-MINERALS COMBO TABLET (FP) PO SCH (11:01)
[2021-06-06] MEDS: CHLORHEXIDINE GLUCONATE 0.12% 15ML CUP MM SCH ×2 (11:02→21:13)
[2021-06-06] MEDS: FLUoxetine HCL 20 MG CAPSULE PO SCH (11:02)
[2021-06-06] MEDS: ENOXAPARIN NA (PORCINE) 40 MG/0.4 ML DISP.SYRIN SQ SCH (11:02)
[2021-06-06] MEDS: ERTAPENEM SODIUM 1 GM in SODIUM CHLORIDE 50 ML IVPB SCH (11:10)
[2021-06-06] MEDS: ALBUTEROL SO4 2.5/IPRATROPIUM 0.5 INH SOL 3 ML VIAL.NEB. NEB SCH ×2 (14:45→20:00)
[2021-06-06] MEDS: ACETAMINOPHEN 325 MG TABLET (FP) PO PRN (21:50)
[2021-06-07] MEDS ORDERED: PT OWN MED DRAWER 7, Y5N ONE (08:38)
[2021-06-07] MEDS: ALBUTEROL SO4 2.5/IPRATROPIUM 0.5 INH SOL 3 ML VIAL.NEB. NEB SCH ×3 (08:56→20:30)
[2021-06-07] MEDS: FLUoxetine HCL 20 MG CAPSULE PO SCH (09:13)
[2021-06-07] MEDS: ATOVAQUONE 750 MG/5 ML (UNIT-DOSE PACKAGING) PO SCH (09:13)
[2021-06-07] MEDS: MULTIVITAMINS THER W-MINERALS COMBO TABLET (FP) PO SCH (09:14)
[2021-06-07] MEDS: CHLORHEXIDINE GLUCONATE 0.12% 15ML CUP MM SCH ×2 (09:15→21:15)
[2021-06-07] MEDS: ERTAPENEM SODIUM 1 GM in SODIUM CHLORIDE 50 ML IVPB SCH (09:15)
[2021-06-07] MEDS: AMINO ACIDS/PROTEIN HYDROLYS 30 ML LIQUID.PKT PO SCH ×2 (09:24→17:25)
[2021-06-07] MEDS: ENOXAPARIN NA (PORCINE) 40 MG/0.4 ML DISP.SYRIN SQ SCH (09:24)
[2021-06-07] MEDS ORDERED: ACETAMINOPHEN 1000 MG/100 ML BAG IVPB PRN (13:43)
[2021-06-07] MEDS ORDERED: AMINO ACIDS 4.25%/D5W 1,000 ML IV SCH (13:45)
[2021-06-07] MEDS: AMINO ACIDS 4.25%/D5W 1,000 ML IV SCH (16:26)
[2021-06-07] MEDS: MULTIVIT INJ. ADULT COMBO WITH VIT K 1 COMBO 10 ML VIAL IV SCH (16:27)
[2021-06-08] MEDS: ATOVAQUONE 750 MG/5 ML (UNIT-DOSE PACKAGING) PO SCH (08:28)
[2021-06-08] MEDS: AMINO ACIDS/PROTEIN HYDROLYS 30 ML LIQUID.PKT PO SCH (08:28)
[2021-06-08] MEDS: ALBUTEROL SO4 2.5/IPRATROPIUM 0.5 INH SOL 3 ML VIAL.NEB. NEB SCH ×3 (08:41→20:29)
[2021-06-08] MEDS ORDERED: OXYMETAZOLINE 0.05% NASAL SOLUTION 15 ML BOTTLE NS ONE (08:53)
[2021-06-08] MEDS: ERTAPENEM SODIUM 1 GM in SODIUM CHLORIDE 50 ML IVPB SCH (10:58)
[2021-06-08] MEDS: CHLORHEXIDINE GLUCONATE 0.12% 15ML CUP MM SCH ×5 (10:59→22:44)
[2021-06-08] MEDS: ENOXAPARIN NA (PORCINE) 40 MG/0.4 ML DISP.SYRIN SQ SCH ×2 (11:05→11:49)
[2021-06-08] MEDS ORDERED: ALBUTEROL SO4 0.083% IH SOL 2.5 MG/3 ML VIAL.NEB. NEB PRN (13:22)
[2021-06-08] MEDS ORDERED: CLOTRIMAZOLE 10 MG TROCHE PO SCH (14:00)
[2021-06-08] MEDS ORDERED: FLUCONAZOLE 100 MG/D5W 50 ML IVPB SCH (15:00)
[2021-06-08] MEDS: FLUCONAZOLE 100 MG/NS 50 ML IVPB SCH (15:23)
[2021-06-08] MEDS: MULTIVIT INJ. ADULT COMBO WITH VIT K 1 COMBO 10 ML VIAL IV SCH (16:09)
[2021-06-08] MEDS: AMINO ACIDS 4.25%/D5W 1,000 ML IV SCH (16:10)
[2021-06-09] MEDS: ALBUTEROL SO4 2.5/IPRATROPIUM 0.5 INH SOL 3 ML VIAL.NEB. NEB SCH ×3 (07:42→19:39)
[2021-06-09 08:38] LABS: BASO % 0.2 % (0-2.0); EOS % 1.7 % (0-4.5); HEMATOCRIT 26.9 % (35.4-49); HEMOGLOBIN 8.9 GM/dL (11.7-16.9); LYMPH % 8.9 % (8-40); MCH 26.3 pg (25.7-33.7); MEAN CELL VOLUME 79.9 fl (80-96); MEAN PLT VOLUME 8.4 fl (7.5-11.1); MONO % 14.4 % (3.8-10.2); NEUT % 74.8 % (42.8-82.8); PLATELET COUNT 200 10^3/uL (134-434); RBC 3.37 M/mm3 (4.00-5.60); RDW 17.8 % (11.9-15.9); WHITE BLOOD COUNT 2.8 K/mm3 (4.0-10.0)
[2021-06-09 09:01] LABS: BLOOD UREA NITROGEN 18.9 mg/dL (7-18); CALCIUM 8.8 mg/dL (8.5-10.1)
[2021-06-09 09:02] LABS: MAGNESIUM 2.3 mg/dL (1.8-2.4)
[2021-06-09 09:05] LABS: CREATININE 0.5 mg/dL (0.55-1.3)
[2021-06-09 09:06] LABS: BILIRUBIN,TOTAL 0.4 mg/dL (0.2-1); TOT PROT 8.8 g/dl (6.4-8.2)
[2021-06-09 09:09] LABS: ALBUMIN 2.7 g/dl (3.4-5.0)
[2021-06-09] MEDS: FLUCONAZOLE 100 MG/NS 50 ML IVPB SCH (10:28)
[2021-06-09] MEDS ORDERED: PT OWN MED DRAWER 7, Y5N ONE (11:00)
[2021-06-09] MEDS: ERTAPENEM SODIUM 1 GM in SODIUM CHLORIDE 50 ML IVPB SCH (11:19)
[2021-06-09] MEDS: ENOXAPARIN NA (PORCINE) 40 MG/0.4 ML DISP.SYRIN SQ SCH (11:28)
[2021-06-09] MEDS: CHLORHEXIDINE GLUCONATE 0.12% 15ML CUP MM SCH ×2 (11:28→21:28)
[2021-06-09] MEDS: AMINO ACIDS 4.25%/D5W 1,000 ML IV SCH ×2 (15:22→15:31)
[2021-06-09] MEDS: MULTIVIT INJ. ADULT COMBO WITH VIT K 1 COMBO 10 ML VIAL IV SCH (15:31)
[2021-06-09] MEDS ORDERED: FAT EMULSION/OLIVE/SOY/PHOSPHO 250 ML IV SCH (22:00)
[2021-06-09] MEDS ORDERED: FAT EMULSION/OLIVE/SOY (CLINOLIPID) 250 ML EMULSION IV SCH (22:00)
[2021-06-10] MEDS: ALBUTEROL SO4 2.5/IPRATROPIUM 0.5 INH SOL 3 ML VIAL.NEB. NEB SCH ×3 (07:55→20:40)
[2021-06-10] MEDS ORDERED: PT OWN MED DRAWER 7, Y5N ONE ×3 (09:50→16:07)
[2021-06-10] MEDS: ATOVAQUONE 750 MG/5 ML (UNIT-DOSE PACKAGING) PO SCH ×2 (09:58→10:04)
[2021-06-10] MEDS: BICTEGRAV/EMTRICIT/TENOFOV (BIKTARVY) 50-200-25 MG TABLET PO SCH ×2 (09:58→10:05)
[2021-06-10] MEDS: FLUoxetine HCL 20 MG CAPSULE PO SCH ×2 (09:58→10:05)
[2021-06-10] MEDS: ENOXAPARIN NA (PORCINE) 40 MG/0.4 ML DISP.SYRIN SQ SCH ×2 (09:58→10:05)
[2021-06-10] MEDS: CHLORHEXIDINE GLUCONATE 0.12% 15ML CUP MM SCH ×2 (10:01→22:43)
[2021-06-10] MEDS: ERTAPENEM SODIUM 1 GM in SODIUM CHLORIDE 50 ML IVPB SCH (10:01)
[2021-06-10] MEDS: FLUCONAZOLE 100 MG/NS 50 ML IVPB SCH (12:04)
[2021-06-10] MEDS: MULTIVIT INJ. ADULT COMBO WITH VIT K 1 COMBO 10 ML VIAL IV SCH (16:13)
[2021-06-10] MEDS: AMINO ACIDS 4.25%/D5W 1,000 ML IV SCH (16:13)
[2021-06-11] MEDS: ALBUTEROL SO4 2.5/IPRATROPIUM 0.5 INH SOL 3 ML VIAL.NEB. NEB SCH ×3 (08:40→19:59)
[2021-06-11] MEDS ORDERED: PT OWN MED DRAWER 7, Y5N ONE (10:02)
[2021-06-11] MEDS: ATOVAQUONE 750 MG/5 ML (UNIT-DOSE PACKAGING) PO SCH (10:04)
[2021-06-11] MEDS: CHLORHEXIDINE GLUCONATE 0.12% 15ML CUP MM SCH ×2 (10:05→22:10)
[2021-06-11] MEDS: BICTEGRAV/EMTRICIT/TENOFOV (BIKTARVY) 50-200-25 MG TABLET PO SCH (10:05)
[2021-06-11] MEDS: FLUoxetine HCL 20 MG CAPSULE PO SCH (10:05)
[2021-06-11] MEDS: ENOXAPARIN NA (PORCINE) 40 MG/0.4 ML DISP.SYRIN SQ SCH (10:05)
[2021-06-11] MEDS: ERTAPENEM SODIUM 1 GM in SODIUM CHLORIDE 50 ML IVPB SCH (10:44)
[2021-06-11] MEDS: FLUCONAZOLE 100 MG/NS 50 ML IVPB SCH (12:09)
[2021-06-11] MEDS: MULTIVIT INJ. ADULT COMBO WITH VIT K 1 COMBO 10 ML VIAL IV SCH (16:36)
[2021-06-11] MEDS: AMINO ACIDS 4.25%/D5W 1,000 ML IV SCH (16:36)
[2021-06-12] MEDS ORDERED: PT OWN MED DRAWER 7, Y5N ONE ×2 (08:05→20:53)
[2021-06-12] MEDS: ATOVAQUONE 750 MG/5 ML (UNIT-DOSE PACKAGING) PO SCH (08:08)
[2021-06-12] MEDS: ALBUTEROL SO4 2.5/IPRATROPIUM 0.5 INH SOL 3 ML VIAL.NEB. NEB SCH ×3 (08:10→19:54)
[2021-06-12] MEDS: BICTEGRAV/EMTRICIT/TENOFOV (BIKTARVY) 50-200-25 MG TABLET PO SCH (09:18)
[2021-06-12] MEDS: CHLORHEXIDINE GLUCONATE 0.12% 15ML CUP MM SCH ×2 (09:18→21:13)
[2021-06-12] MEDS: FLUoxetine HCL 20 MG CAPSULE PO SCH (09:18)
[2021-06-12] MEDS: ENOXAPARIN NA (PORCINE) 40 MG/0.4 ML DISP.SYRIN SQ SCH (09:18)
[2021-06-12] MEDS: FLUCONAZOLE 100 MG/NS 50 ML IVPB SCH (11:12)
[2021-06-12] MEDS: ERTAPENEM SODIUM 1 GM in SODIUM CHLORIDE 50 ML IVPB SCH (11:12)
[2021-06-12] MEDS: MULTIVIT INJ. ADULT COMBO WITH VIT K 1 COMBO 10 ML VIAL IV SCH (14:23)
[2021-06-12] MEDS: AMINO ACIDS 4.25%/D5W 1,000 ML IV SCH ×2 (16:41→21:47)
[2021-06-13] MEDS: ALBUTEROL SO4 2.5/IPRATROPIUM 0.5 INH SOL 3 ML VIAL.NEB. NEB SCH ×3 (07:45→20:00)
[2021-06-13] MEDS ORDERED: PT OWN MED DRAWER 7, Y5N ONE ×2 (09:01→21:48)
[2021-06-13] MEDS: ATOVAQUONE 750 MG/5 ML (UNIT-DOSE PACKAGING) PO SCH (09:04)
[2021-06-13] MEDS: BICTEGRAV/EMTRICIT/TENOFOV (BIKTARVY) 50-200-25 MG TABLET PO SCH (09:04)
[2021-06-13] MEDS: FLUoxetine HCL 20 MG CAPSULE PO SCH (09:05)
[2021-06-13] MEDS: MULTIVIT INJ. ADULT COMBO WITH VIT K 1 COMBO 10 ML VIAL IV SCH ×2 (09:05→13:17)
[2021-06-13] MEDS: CHLORHEXIDINE GLUCONATE 0.12% 15ML CUP MM SCH ×2 (09:05→22:56)
[2021-06-13] MEDS: ENOXAPARIN NA (PORCINE) 40 MG/0.4 ML DISP.SYRIN SQ SCH (09:05)
[2021-06-13] MEDS: AMINO ACIDS 4.25%/D5W 1,000 ML IV SCH (09:48)
[2021-06-13] MEDS: ERTAPENEM SODIUM 1 GM in SODIUM CHLORIDE 50 ML IVPB SCH (09:55)
[2021-06-13] MEDS: FLUCONAZOLE 100 MG/NS 50 ML IVPB SCH (09:56)
[2021-06-14] MEDS: ALBUTEROL SO4 2.5/IPRATROPIUM 0.5 INH SOL 3 ML VIAL.NEB. NEB SCH ×3 (07:35→20:48)
[2021-06-14] MEDS ORDERED: PT OWN MED DRAWER 7, Y5N ONE (09:24)
[2021-06-14] MEDS: CHLORHEXIDINE GLUCONATE 0.12% 15ML CUP MM SCH ×2 (09:26→22:40)
[2021-06-14] MEDS: ATOVAQUONE 750 MG/5 ML (UNIT-DOSE PACKAGING) PO SCH (09:26)
[2021-06-14] MEDS: BICTEGRAV/EMTRICIT/TENOFOV (BIKTARVY) 50-200-25 MG TABLET PO SCH (09:26)
[2021-06-14] MEDS: FLUoxetine HCL 20 MG CAPSULE PO SCH (09:26)
[2021-06-14] MEDS: FLUCONAZOLE 100 MG/NS 50 ML IVPB SCH (09:26)
[2021-06-14] MEDS: ERTAPENEM SODIUM 1 GM in SODIUM CHLORIDE 50 ML IVPB SCH (09:27)
[2021-06-14] MEDS: MULTIVIT INJ. ADULT COMBO WITH VIT K 1 COMBO 10 ML VIAL IV SCH (14:54)
[2021-06-14] MEDS: AMINO ACIDS 4.25%/D5W 1,000 ML IV SCH (14:54)
[2021-06-15] MEDS: ALBUTEROL SO4 2.5/IPRATROPIUM 0.5 INH SOL 3 ML VIAL.NEB. NEB SCH ×3 (07:41→20:20)
[2021-06-15] MEDS ORDERED: PT OWN MED DRAWER 7, Y5N ONE ×2 (09:35→21:19)
[2021-06-15] MEDS: FLUoxetine HCL 20 MG CAPSULE PO SCH (09:36)
[2021-06-15] MEDS: BICTEGRAV/EMTRICIT/TENOFOV (BIKTARVY) 50-200-25 MG TABLET PO SCH (09:37)
[2021-06-15] MEDS: CHLORHEXIDINE GLUCONATE 0.12% 15ML CUP MM SCH ×2 (09:37→21:56)
[2021-06-15] MEDS: ATOVAQUONE 750 MG/5 ML (UNIT-DOSE PACKAGING) PO SCH (09:37)
[2021-06-15] MEDS: MULTIVITAMINS (DAILY MVI) TABLET (FP) PO SCH (10:51)
[2021-06-15] MEDS: FLUCONAZOLE 100 MG TABLET (UD) PO SCH (11:30)
[2021-06-15] MEDS: ERTAPENEM SODIUM 1 GM in SODIUM CHLORIDE 50 ML IVPB SCH (11:31)
[2021-06-16] MEDS ORDERED: PT OWN MED DRAWER 7, Y5N ONE ×5 (08:10→21:46)
[2021-06-16] MEDS: ATOVAQUONE 750 MG/5 ML (UNIT-DOSE PACKAGING) PO SCH (08:19)
[2021-06-16] MEDS: ALBUTEROL SO4 2.5/IPRATROPIUM 0.5 INH SOL 3 ML VIAL.NEB. NEB SCH ×3 (08:19→19:56)
[2021-06-16] MEDS: FLUoxetine HCL 20 MG CAPSULE PO SCH (09:46)
[2021-06-16] MEDS: MULTIVITAMINS (DAILY MVI) TABLET (FP) PO SCH (09:46)
[2021-06-16] MEDS: CHLORHEXIDINE GLUCONATE 0.12% 15ML CUP MM SCH ×2 (09:47→21:45)
[2021-06-16] MEDS: FLUCONAZOLE 100 MG TABLET (UD) PO SCH (09:47)
[2021-06-16] MEDS: BICTEGRAV/EMTRICIT/TENOFOV (BIKTARVY) 50-200-25 MG TABLET PO SCH (09:47)
[2021-06-16] MEDS: ERTAPENEM SODIUM 1 GM in SODIUM CHLORIDE 50 ML IVPB SCH (10:15)
[2021-06-17] MEDS: ALBUTEROL SO4 2.5/IPRATROPIUM 0.5 INH SOL 3 ML VIAL.NEB. NEB SCH ×3 (08:00→20:27)
[2021-06-17] MEDS ORDERED: PT OWN MED DRAWER 7, Y5N ONE ×2 (08:05→18:44)
[2021-06-17] MEDS: FLUoxetine HCL 20 MG CAPSULE PO SCH (10:05)
[2021-06-17] MEDS: BICTEGRAV/EMTRICIT/TENOFOV (BIKTARVY) 50-200-25 MG TABLET PO SCH (10:05)
[2021-06-17] MEDS: ATOVAQUONE 750 MG/5 ML (UNIT-DOSE PACKAGING) PO SCH (10:05)
[2021-06-17] MEDS: FLUCONAZOLE 100 MG TABLET (UD) PO SCH (10:05)
[2021-06-17] MEDS: MULTIVITAMINS (DAILY MVI) TABLET (FP) PO SCH (10:05)
[2021-06-17] MEDS: CHLORHEXIDINE GLUCONATE 0.12% 15ML CUP MM SCH ×3 (10:06→21:21)
[2021-06-17] MEDS: ERTAPENEM SODIUM 1 GM in SODIUM CHLORIDE 50 ML IVPB SCH (10:48)
[2021-06-17] MEDS: traMADol HCL 50 MG TABLET PO PRN (14:15)
[2021-06-18] MEDS: ALBUTEROL SO4 2.5/IPRATROPIUM 0.5 INH SOL 3 ML VIAL.NEB. NEB SCH ×3 (07:50→20:50)
[2021-06-18] MEDS ORDERED: PT OWN MED DRAWER 7, Y5N ONE ×2 (08:35→10:58)
[2021-06-18] MEDS: traMADol HCL 50 MG TABLET PO PRN (08:36)
[2021-06-18] MEDS: ATOVAQUONE 750 MG/5 ML (UNIT-DOSE PACKAGING) PO SCH (08:39)
[2021-06-18] MEDS: ERTAPENEM SODIUM 1 GM in SODIUM CHLORIDE 50 ML IVPB SCH (09:26)
[2021-06-18] MEDS: MULTIVITAMINS (DAILY MVI) TABLET (FP) PO SCH (09:27)
[2021-06-18] MEDS: CHLORHEXIDINE GLUCONATE 0.12% 15ML CUP MM SCH ×2 (09:27→21:49)
[2021-06-18] MEDS: FLUoxetine HCL 20 MG CAPSULE PO SCH (09:27)
[2021-06-18] MEDS: FLUCONAZOLE 100 MG TABLET (UD) PO SCH (10:58)
[2021-06-18] MEDS: BICTEGRAV/EMTRICIT/TENOFOV (BIKTARVY) 50-200-25 MG TABLET PO SCH (10:58)
[2021-06-18] MEDS ORDERED: oxyCODONE HCL 5 MG TABLET PO PRN (12:37)
[2021-06-18] MEDS: oxyCODONE HCL 5 MG TABLET PO PRN (12:41)
[2021-06-19] MEDS: ALBUTEROL SO4 2.5/IPRATROPIUM 0.5 INH SOL 3 ML VIAL.NEB. NEB SCH ×3 (08:13→20:10)
[2021-06-19] MEDS ORDERED: ERTAPENEM SODIUM 1 GM VIAL ONE (09:03)
[2021-06-19] MEDS ORDERED: SODIUM CHLORIDE 50 ML IVPB ONE (09:03)
[2021-06-19] MEDS: ATOVAQUONE 750 MG/5 ML (UNIT-DOSE PACKAGING) PO SCH (09:59)
[2021-06-19] MEDS: CHLORHEXIDINE GLUCONATE 0.12% 15ML CUP MM SCH ×2 (09:59→21:49)
[2021-06-19] MEDS: MULTIVITAMINS (DAILY MVI) TABLET (FP) PO SCH (10:05)
[2021-06-19] MEDS: FLUCONAZOLE 100 MG TABLET (UD) PO SCH (10:05)
[2021-06-19] MEDS: BICTEGRAV/EMTRICIT/TENOFOV (BIKTARVY) 50-200-25 MG TABLET PO SCH (10:05)
[2021-06-19] MEDS: FLUoxetine HCL 20 MG CAPSULE PO SCH (10:05)
[2021-06-19] MEDS: ERTAPENEM SODIUM 1 GM in SODIUM CHLORIDE 50 ML IVPB SCH (10:05)
[2021-06-19] MEDS: oxyCODONE HCL 5 MG TABLET PO PRN ×2 (10:20→17:10)
[2021-06-20] MEDS: oxyCODONE HCL 5 MG TABLET PO PRN ×2 (05:54→15:50)
[2021-06-20] MEDS: ALBUTEROL SO4 2.5/IPRATROPIUM 0.5 INH SOL 3 ML VIAL.NEB. NEB SCH ×3 (07:45→20:13)
[2021-06-20] MEDS ORDERED: ERTAPENEM SODIUM 1 GM VIAL ONE (09:19)
[2021-06-20] MEDS ORDERED: SODIUM CHLORIDE 50 ML IVPB ONE (09:20)
[2021-06-20] MEDS: FLUoxetine HCL 20 MG CAPSULE PO SCH (09:29)
[2021-06-20] MEDS: FLUCONAZOLE 100 MG TABLET (UD) PO SCH (09:29)
[2021-06-20] MEDS: MULTIVITAMINS (DAILY MVI) TABLET (FP) PO SCH (09:29)
[2021-06-20] MEDS: ATOVAQUONE 750 MG/5 ML (UNIT-DOSE PACKAGING) PO SCH (09:30)
[2021-06-20] MEDS: ERTAPENEM SODIUM 1 GM in SODIUM CHLORIDE 50 ML IVPB SCH (09:30)
[2021-06-20] MEDS: BICTEGRAV/EMTRICIT/TENOFOV (BIKTARVY) 50-200-25 MG TABLET PO SCH (09:30)
[2021-06-20] MEDS: CHLORHEXIDINE GLUCONATE 0.12% 15ML CUP MM SCH ×2 (09:30→22:21)
[2021-06-20] MEDS ORDERED: MAGNESIUM HYDROX 2400MG/30ML ORAL SUSPENSION 30 ML CUP PO ONE (13:45)
[2021-06-21] MEDS: ALBUTEROL SO4 2.5/IPRATROPIUM 0.5 INH SOL 3 ML VIAL.NEB. NEB SCH ×3 (08:55→20:45)
[2021-06-21] MEDS ORDERED: PT OWN MED DRAWER 7, Y5N ONE (09:36)
[2021-06-21] MEDS: oxyCODONE HCL 5 MG TABLET PO PRN ×2 (09:39→19:34)
[2021-06-21] MEDS: FLUCONAZOLE 100 MG TABLET (UD) PO SCH ×2 (09:39→09:51)
[2021-06-21] MEDS: MULTIVITAMINS (DAILY MVI) TABLET (FP) PO SCH ×2 (09:39→09:52)
[2021-06-21] MEDS: ATOVAQUONE 750 MG/5 ML (UNIT-DOSE PACKAGING) PO SCH ×2 (09:41→09:51)
[2021-06-21] MEDS: CHLORHEXIDINE GLUCONATE 0.12% 15ML CUP MM SCH ×2 (09:42→09:50)
[2021-06-21] MEDS: BICTEGRAV/EMTRICIT/TENOFOV (BIKTARVY) 50-200-25 MG TABLET PO SCH ×2 (09:42→09:51)
[2021-06-21] MEDS: FLUoxetine HCL 20 MG CAPSULE PO SCH ×2 (09:43→09:52)
[2021-06-21] MEDS ORDERED: oxyCODONE HCL 5 MG TABLET PO PRN (18:36)
[2021-06-22] MEDS: CHLORHEXIDINE GLUCONATE 0.12% 15ML CUP MM SCH ×3 (04:54→23:17)
[2021-06-22] MEDS: ALBUTEROL SO4 2.5/IPRATROPIUM 0.5 INH SOL 3 ML VIAL.NEB. NEB SCH ×3 (08:35→20:28)
[2021-06-22] MEDS: FLUoxetine HCL 20 MG CAPSULE PO SCH (09:21)
[2021-06-22] MEDS: oxyCODONE HCL 5 MG TABLET PO PRN (09:21)
[2021-06-22] MEDS: ATOVAQUONE 750 MG/5 ML (UNIT-DOSE PACKAGING) PO SCH (09:22)
[2021-06-22] MEDS: BICTEGRAV/EMTRICIT/TENOFOV (BIKTARVY) 50-200-25 MG TABLET PO SCH (09:22)
[2021-06-22] MEDS: FLUCONAZOLE 100 MG TABLET (UD) PO SCH (09:22)
[2021-06-22] MEDS: MULTIVITAMINS (DAILY MVI) TABLET (FP) PO SCH (09:22)
[2021-06-22] MEDS: POLYETHYLENE GLYCOL (HEALTHYLAX) 3350 17 GM PACKET PO SCH ×2 (12:08→23:16)
[2021-06-22] MEDS ORDERED: PT OWN MED DRAWER 7, Y5N ONE (23:03)
[2021-06-22] MEDS: DOCUSATE SODIUM 100 MG CAPSULE (FP) PO SCH (23:10)
[2021-06-23] MEDS ORDERED: PT OWN MED DRAWER 7, Y5N ONE ×4 (07:01→09:14)
[2021-06-23] MEDS: ALBUTEROL SO4 2.5/IPRATROPIUM 0.5 INH SOL 3 ML VIAL.NEB. NEB SCH ×2 (09:11→14:59)
[2021-06-23] MEDS: MULTIVITAMINS (DAILY MVI) TABLET (FP) PO SCH (10:34)
[2021-06-23] MEDS: BICTEGRAV/EMTRICIT/TENOFOV (BIKTARVY) 50-200-25 MG TABLET PO SCH (10:34)
[2021-06-23] MEDS: FLUCONAZOLE 100 MG TABLET (UD) PO SCH (10:35)
[2021-06-23] MEDS: ATOVAQUONE 750 MG/5 ML (UNIT-DOSE PACKAGING) PO SCH ×2 (10:36→10:39)
[2021-06-23] MEDS: CHLORHEXIDINE GLUCONATE 0.12% 15ML CUP MM SCH ×2 (10:39→21:20)
[2021-06-23] MEDS: POLYETHYLENE GLYCOL (HEALTHYLAX) 3350 17 GM PACKET PO SCH ×2 (10:39→21:19)
[2021-06-23] MEDS: FLUoxetine HCL 20 MG CAPSULE PO SCH (10:56)
[2021-06-23] MEDS: oxyCODONE HCL 5 MG TABLET PO PRN (14:46)
[2021-06-23] MEDS: DOCUSATE SODIUM 100 MG CAPSULE (FP) PO SCH (21:19)
[2021-06-24] MEDS: oxyCODONE HCL 5 MG TABLET PO PRN ×3 (05:56→15:57)
[2021-06-24] MEDS ORDERED: PT OWN MED DRAWER 7, Y5N ONE (09:02)
[2021-06-24] MEDS: ATOVAQUONE 750 MG/5 ML (UNIT-DOSE PACKAGING) PO SCH (09:08)
[2021-06-24] MEDS: POLYETHYLENE GLYCOL (HEALTHYLAX) 3350 17 GM PACKET PO SCH ×2 (09:08→21:36)
[2021-06-24] MEDS: FLUCONAZOLE 100 MG TABLET (UD) PO SCH (09:08)
[2021-06-24] MEDS: BICTEGRAV/EMTRICIT/TENOFOV (BIKTARVY) 50-200-25 MG TABLET PO SCH (09:08)
[2021-06-24] MEDS: FLUoxetine HCL 20 MG CAPSULE PO SCH (09:08)
[2021-06-24] MEDS: MULTIVITAMINS (DAILY MVI) TABLET (FP) PO SCH (09:08)
[2021-06-24] MEDS: CHLORHEXIDINE GLUCONATE 0.12% 15ML CUP MM SCH ×2 (09:08→21:36)
[2021-06-24] MEDS ORDERED: oxyCODONE HCL 5 MG TABLET PO PRN (15:48)
[2021-06-24] MEDS: DOCUSATE SODIUM 100 MG CAPSULE (FP) PO SCH (21:36)
[2021-06-25] MEDS: ATOVAQUONE 750 MG/5 ML (UNIT-DOSE PACKAGING) PO SCH (08:30)
[2021-06-25] MEDS: BICTEGRAV/EMTRICIT/TENOFOV (BIKTARVY) 50-200-25 MG TABLET PO SCH (10:00)
[2021-06-25] MEDS: POLYETHYLENE GLYCOL (HEALTHYLAX) 3350 17 GM PACKET PO SCH ×2 (10:03→22:02)
[2021-06-25] MEDS: FLUCONAZOLE 100 MG TABLET (UD) PO SCH (10:03)
[2021-06-25] MEDS: FLUoxetine HCL 20 MG CAPSULE PO SCH (10:04)
[2021-06-25] MEDS: CHLORHEXIDINE GLUCONATE 0.12% 15ML CUP MM SCH ×2 (10:04→22:02)
[2021-06-25] MEDS: MULTIVITAMINS (DAILY MVI) TABLET (FP) PO SCH (17:02)
[2021-06-25] MEDS: oxyCODONE HCL 5 MG TABLET PO PRN (19:09)
[2021-06-25] MEDS: DOCUSATE SODIUM 100 MG CAPSULE (FP) PO SCH (22:02)
[2021-06-26] MEDS: FLUoxetine HCL 20 MG CAPSULE PO SCH (09:24)
[2021-06-26] MEDS: BICTEGRAV/EMTRICIT/TENOFOV (BIKTARVY) 50-200-25 MG TABLET PO SCH (09:24)
[2021-06-26] MEDS: MULTIVITAMINS (DAILY MVI) TABLET (FP) PO SCH (09:25)
[2021-06-26] MEDS: FLUCONAZOLE 100 MG TABLET (UD) PO SCH (09:25)
[2021-06-26] MEDS: ATOVAQUONE 750 MG/5 ML (UNIT-DOSE PACKAGING) PO SCH (09:25)
[2021-06-26] MEDS: CHLORHEXIDINE GLUCONATE 0.12% 15ML CUP MM SCH ×3 (09:26→21:43)
[2021-06-26] MEDS: POLYETHYLENE GLYCOL (HEALTHYLAX) 3350 17 GM PACKET PO SCH ×2 (09:26→21:43)
[2021-06-26] MEDS: oxyCODONE HCL 5 MG TABLET PO PRN (20:28)
[2021-06-26] MEDS: DOCUSATE SODIUM 100 MG CAPSULE (FP) PO SCH (21:43)
[2021-06-27] MEDS: MULTIVITAMINS (DAILY MVI) TABLET (FP) PO SCH ×2 (01:23→10:35)
[2021-06-27] MEDS ORDERED: PT OWN MED DRAWER 7, Y5N ONE (08:53)
[2021-06-27] MEDS: ATOVAQUONE 750 MG/5 ML (UNIT-DOSE PACKAGING) PO SCH (10:35)
[2021-06-27] MEDS: FLUoxetine HCL 20 MG CAPSULE PO SCH (10:35)
[2021-06-27] MEDS: POLYETHYLENE GLYCOL (HEALTHYLAX) 3350 17 GM PACKET PO SCH ×3 (10:35→22:11)
[2021-06-27] MEDS: BICTEGRAV/EMTRICIT/TENOFOV (BIKTARVY) 50-200-25 MG TABLET PO SCH (10:35)
[2021-06-27] MEDS: CHLORHEXIDINE GLUCONATE 0.12% 15ML CUP MM SCH ×3 (10:35→23:00)
[2021-06-27] MEDS: FLUCONAZOLE 100 MG TABLET (UD) PO SCH (10:35)
[2021-06-27] MEDS: DOCUSATE SODIUM 100 MG CAPSULE (FP) PO SCH (22:06)
[2021-06-27] MEDS: oxyCODONE HCL 5 MG TABLET PO PRN (22:07)
[2021-06-28] MEDS ORDERED: PT OWN MED DRAWER 7, Y5N ONE ×2 (09:30→10:47)
[2021-06-28] MEDS: FLUoxetine HCL 20 MG CAPSULE PO SCH (09:36)
[2021-06-28] MEDS: FLUCONAZOLE 100 MG TABLET (UD) PO SCH (09:36)
[2021-06-28] MEDS: MULTIVITAMINS (DAILY MVI) TABLET (FP) PO SCH (09:36)
[2021-06-28] MEDS: CHLORHEXIDINE GLUCONATE 0.12% 15ML CUP MM SCH ×3 (09:36→21:37)
[2021-06-28] MEDS: ATOVAQUONE 750 MG/5 ML (UNIT-DOSE PACKAGING) PO SCH ×2 (09:37→09:42)
[2021-06-28] MEDS: POLYETHYLENE GLYCOL (HEALTHYLAX) 3350 17 GM PACKET PO SCH ×3 (09:37→21:37)
[2021-06-28] MEDS: BICTEGRAV/EMTRICIT/TENOFOV (BIKTARVY) 50-200-25 MG TABLET PO SCH (09:37)
[2021-06-28] MEDS: oxyCODONE HCL 5 MG TABLET PO PRN (21:22)
[2021-06-28] MEDS: DOCUSATE SODIUM 100 MG CAPSULE (FP) PO SCH (21:37)
[2021-06-29] MEDS ORDERED: PT OWN MED DRAWER 7, Y5N ONE ×3 (11:09→20:58)
[2021-06-29] MEDS: CHLORHEXIDINE GLUCONATE 0.12% 15ML CUP MM SCH ×2 (11:12→21:03)
[2021-06-29] MEDS: oxyCODONE HCL 5 MG TABLET PO PRN ×2 (11:13→17:42)
[2021-06-29] MEDS: POLYETHYLENE GLYCOL (HEALTHYLAX) 3350 17 GM PACKET PO SCH ×2 (11:15→21:02)
[2021-06-29] MEDS: FLUoxetine HCL 20 MG CAPSULE PO SCH (11:15)
[2021-06-29] MEDS: ATOVAQUONE 750 MG/5 ML (UNIT-DOSE PACKAGING) PO SCH (11:16)
[2021-06-29] MEDS: MULTIVITAMINS (DAILY MVI) TABLET (FP) PO SCH (11:16)
[2021-06-29] MEDS: FLUCONAZOLE 100 MG TABLET (UD) PO SCH (11:17)
[2021-06-29] MEDS: BICTEGRAV/EMTRICIT/TENOFOV (BIKTARVY) 50-200-25 MG TABLET PO SCH (11:19)
[2021-06-29] MEDS: DOCUSATE SODIUM 100 MG CAPSULE (FP) PO SCH (21:02)
[2021-06-30] MEDS: ATOVAQUONE 750 MG/5 ML (UNIT-DOSE PACKAGING) PO SCH (08:21)
[2021-06-30] MEDS: oxyCODONE HCL 5 MG TABLET PO PRN (11:16)
[2021-06-30] MEDS: FLUCONAZOLE 100 MG TABLET (UD) PO SCH (11:16)
[2021-06-30] MEDS: BICTEGRAV/EMTRICIT/TENOFOV (BIKTARVY) 50-200-25 MG TABLET PO SCH (11:17)
[2021-06-30] MEDS: FLUoxetine HCL 20 MG CAPSULE PO SCH (11:17)
[2021-06-30] MEDS: MULTIVITAMINS (DAILY MVI) TABLET (FP) PO SCH (11:17)
[2021-06-30] MEDS: POLYETHYLENE GLYCOL (HEALTHYLAX) 3350 17 GM PACKET PO SCH ×2 (11:18→21:19)
[2021-06-30] MEDS: CHLORHEXIDINE GLUCONATE 0.12% 15ML CUP MM SCH ×2 (11:18→21:19)
[2021-06-30] MEDS ORDERED: oxyCODONE HCL 5 MG TABLET PO PRN (13:39)
[2021-06-30] MEDS: DOCUSATE SODIUM 100 MG CAPSULE (FP) PO SCH (21:19)
[2021-07-01] MEDS ORDERED: PT OWN MED DRAWER 7, Y5N ONE ×2 (09:50→11:45)
[2021-07-01] MEDS: ATOVAQUONE 750 MG/5 ML (UNIT-DOSE PACKAGING) PO SCH (10:14)
[2021-07-01] MEDS: FLUoxetine HCL 20 MG CAPSULE PO SCH (10:15)
[2021-07-01] MEDS: CHLORHEXIDINE GLUCONATE 0.12% 15ML CUP MM SCH ×2 (10:15→22:10)
[2021-07-01] MEDS: POLYETHYLENE GLYCOL (HEALTHYLAX) 3350 17 GM PACKET PO SCH ×2 (10:15→22:10)
[2021-07-01] MEDS: BICTEGRAV/EMTRICIT/TENOFOV (BIKTARVY) 50-200-25 MG TABLET PO SCH (10:16)
[2021-07-01] MEDS: MULTIVITAMINS (DAILY MVI) TABLET (FP) PO SCH (10:16)
[2021-07-01] MEDS: FLUCONAZOLE 100 MG TABLET (UD) PO SCH (10:16)
[2021-07-01] MEDS ORDERED: oxyCODONE HCL 5 MG TABLET PO PRN (13:55)
[2021-07-01] MEDS: DOCUSATE SODIUM 100 MG CAPSULE (FP) PO SCH (22:10)
[2021-07-01] MEDS ORDERED: ONDANSETRON *ODT* 4 MG TABLET SL ONE (23:01)
[2021-07-01] MEDS: oxyCODONE HCL 5 MG TABLET PO PRN (23:44)
[2021-07-02] MEDS ORDERED: ONDANSETRON *ODT* 4 MG TABLET SL PRN (07:36)
[2021-07-02] MEDS: POLYETHYLENE GLYCOL (HEALTHYLAX) 3350 17 GM PACKET PO SCH ×2 (10:37→21:36)
[2021-07-02] MEDS: ATOVAQUONE 750 MG/5 ML (UNIT-DOSE PACKAGING) PO SCH (10:38)
[2021-07-02] MEDS: BICTEGRAV/EMTRICIT/TENOFOV (BIKTARVY) 50-200-25 MG TABLET PO SCH (10:38)
[2021-07-02] MEDS: CHLORHEXIDINE GLUCONATE 0.12% 15ML CUP MM SCH ×2 (10:38→21:36)
[2021-07-02] MEDS: FLUCONAZOLE 100 MG TABLET (UD) PO SCH (10:39)
[2021-07-02] MEDS: FLUoxetine HCL 20 MG CAPSULE PO SCH (10:39)
[2021-07-02] MEDS: MULTIVITAMINS (DAILY MVI) TABLET (FP) PO SCH (10:40)
[2021-07-02] MEDS: oxyCODONE HCL 5 MG TABLET PO PRN ×2 (10:47→16:55)
[2021-07-02] MEDS ORDERED: PT OWN MED DRAWER 7, Y5N ONE (21:06)
[2021-07-02] MEDS: DOCUSATE SODIUM 100 MG CAPSULE (FP) PO SCH (21:35)
[2021-07-03] MEDS: BICTEGRAV/EMTRICIT/TENOFOV (BIKTARVY) 50-200-25 MG TABLET PO SCH (09:51)
[2021-07-03] MEDS: FLUoxetine HCL 20 MG CAPSULE PO SCH (09:51)
[2021-07-03] MEDS: ATOVAQUONE 750 MG/5 ML (UNIT-DOSE PACKAGING) PO SCH (09:52)
[2021-07-03] MEDS: CHLORHEXIDINE GLUCONATE 0.12% 15ML CUP MM SCH ×2 (09:52→21:02)
[2021-07-03] MEDS: MULTIVITAMINS (DAILY MVI) TABLET (FP) PO SCH (09:53)
[2021-07-03] MEDS: FLUCONAZOLE 100 MG TABLET (UD) PO SCH (09:53)
[2021-07-03] MEDS: POLYETHYLENE GLYCOL (HEALTHYLAX) 3350 17 GM PACKET PO SCH ×2 (09:54→21:02)
[2021-07-03] MEDS: oxyCODONE HCL 5 MG TABLET PO PRN ×2 (09:55→21:03)
[2021-07-03] MEDS: DOCUSATE SODIUM 100 MG CAPSULE (FP) PO SCH (21:02)
[2021-07-04] MEDS ORDERED: PT OWN MED DRAWER 7, Y5N ONE ×3 (08:15→21:28)
[2021-07-04] MEDS: ATOVAQUONE 750 MG/5 ML (UNIT-DOSE PACKAGING) PO SCH (08:18)
[2021-07-04] MEDS ORDERED: INSULIN (NOVOLOG) ASPART 100 UNITS/ML 10ML VIAL ONE (11:07)
[2021-07-04] MEDS: BICTEGRAV/EMTRICIT/TENOFOV (BIKTARVY) 50-200-25 MG TABLET PO SCH (11:15)
[2021-07-04] MEDS: FLUCONAZOLE 100 MG TABLET (UD) PO SCH (11:16)
[2021-07-04] MEDS: POLYETHYLENE GLYCOL (HEALTHYLAX) 3350 17 GM PACKET PO SCH ×3 (11:16→21:46)
[2021-07-04] MEDS: FLUoxetine HCL 20 MG CAPSULE PO SCH (11:16)
[2021-07-04] MEDS: MULTIVITAMINS (DAILY MVI) TABLET (FP) PO SCH (11:16)
[2021-07-04] MEDS: CHLORHEXIDINE GLUCONATE 0.12% 15ML CUP MM SCH ×3 (11:17→21:46)
[2021-07-04] MEDS: DOCUSATE SODIUM 100 MG CAPSULE (FP) PO SCH (21:46)
[2021-07-05] MEDS ORDERED: PT OWN MED DRAWER 7, Y5N ONE (08:14)
[2021-07-05] MEDS: ATOVAQUONE 750 MG/5 ML (UNIT-DOSE PACKAGING) PO SCH (08:16)
[2021-07-05] MEDS: FLUoxetine HCL 20 MG CAPSULE PO SCH (09:34)
[2021-07-05] MEDS: MULTIVITAMINS (DAILY MVI) TABLET (FP) PO SCH (09:34)
[2021-07-05] MEDS: CHLORHEXIDINE GLUCONATE 0.12% 15ML CUP MM SCH ×2 (09:34→21:30)
[2021-07-05] MEDS: BICTEGRAV/EMTRICIT/TENOFOV (BIKTARVY) 50-200-25 MG TABLET PO SCH (09:34)
[2021-07-05] MEDS: FLUCONAZOLE 100 MG TABLET (UD) PO SCH (09:34)
[2021-07-05] MEDS: POLYETHYLENE GLYCOL (HEALTHYLAX) 3350 17 GM PACKET PO SCH ×2 (09:34→21:30)
[2021-07-05] MEDS: oxyCODONE HCL 5 MG TABLET PO PRN (09:43)
[2021-07-05] MEDS: DOCUSATE SODIUM 100 MG CAPSULE (FP) PO SCH (21:30)
[2021-07-06] MEDS: ATOVAQUONE 750 MG/5 ML (UNIT-DOSE PACKAGING) PO SCH (09:52)
[2021-07-06] MEDS: BICTEGRAV/EMTRICIT/TENOFOV (BIKTARVY) 50-200-25 MG TABLET PO SCH (09:52)
[2021-07-06] MEDS: FLUCONAZOLE 100 MG TABLET (UD) PO SCH (09:52)
[2021-07-06] MEDS: MULTIVITAMINS (DAILY MVI) TABLET (FP) PO SCH (09:52)
[2021-07-06] MEDS: FLUoxetine HCL 20 MG CAPSULE PO SCH (09:52)
[2021-07-06] MEDS: POLYETHYLENE GLYCOL (HEALTHYLAX) 3350 17 GM PACKET PO SCH ×2 (09:53→21:33)
[2021-07-06] MEDS: oxyCODONE HCL 5 MG TABLET PO PRN (09:53)
[2021-07-06] MEDS: CHLORHEXIDINE GLUCONATE 0.12% 15ML CUP MM SCH ×2 (09:53→21:33)
[2021-07-06] MEDS: DOCUSATE SODIUM 100 MG CAPSULE (FP) PO SCH (21:33)
[2021-07-07] MEDS: MULTIVITAMINS (DAILY MVI) TABLET (FP) PO SCH (11:46)
[2021-07-07] MEDS: FLUoxetine HCL 20 MG CAPSULE PO SCH (11:46)
[2021-07-07] MEDS: CHLORHEXIDINE GLUCONATE 0.12% 15ML CUP MM SCH ×2 (11:47→21:56)
[2021-07-07] MEDS: BICTEGRAV/EMTRICIT/TENOFOV (BIKTARVY) 50-200-25 MG TABLET PO SCH (11:47)
[2021-07-07] MEDS: POLYETHYLENE GLYCOL (HEALTHYLAX) 3350 17 GM PACKET PO SCH ×2 (11:48→21:56)
[2021-07-07] MEDS: ATOVAQUONE 750 MG/5 ML (UNIT-DOSE PACKAGING) PO SCH (11:49)
[2021-07-07] MEDS: FLUCONAZOLE 100 MG TABLET (UD) PO SCH (11:50)
[2021-07-07] MEDS: ACETAMINOPHEN 325 MG TABLET (FP) PO PRN (21:56)
[2021-07-07] MEDS: DOCUSATE SODIUM 100 MG CAPSULE (FP) PO SCH (21:57)
[2021-07-08] MEDS: ATOVAQUONE 750 MG/5 ML (UNIT-DOSE PACKAGING) PO SCH (10:14)
[2021-07-08] MEDS: FLUoxetine HCL 20 MG CAPSULE PO SCH (10:14)
[2021-07-08] MEDS: MULTIVITAMINS (DAILY MVI) TABLET (FP) PO SCH (10:15)
[2021-07-08] MEDS: POLYETHYLENE GLYCOL (HEALTHYLAX) 3350 17 GM PACKET PO SCH ×2 (10:15→21:02)
[2021-07-08] MEDS: FLUCONAZOLE 100 MG TABLET (UD) PO SCH (10:16)
[2021-07-08] MEDS: CHLORHEXIDINE GLUCONATE 0.12% 15ML CUP MM SCH ×3 (10:16→21:02)
[2021-07-08] MEDS ORDERED: INSULIN (NOVOLOG) ASPART 100 UNITS/ML 10ML VIAL ONE (11:50)
[2021-07-08] MEDS: BICTEGRAV/EMTRICIT/TENOFOV (BIKTARVY) 50-200-25 MG TABLET PO SCH (12:29)
[2021-07-08] MEDS: ACETAMINOPHEN 325 MG TABLET (FP) PO PRN ×2 (12:32→18:59)
[2021-07-08] MEDS: DOCUSATE SODIUM 100 MG CAPSULE (FP) PO SCH (21:02)
[2021-07-09] MEDS: ATOVAQUONE 750 MG/5 ML (UNIT-DOSE PACKAGING) PO SCH (08:38)
[2021-07-09] MEDS: BICTEGRAV/EMTRICIT/TENOFOV (BIKTARVY) 50-200-25 MG TABLET PO SCH (10:41)
[2021-07-09] MEDS: FLUCONAZOLE 100 MG TABLET (UD) PO SCH (10:41)
[2021-07-09] MEDS: FLUoxetine HCL 20 MG CAPSULE PO SCH (10:41)
[2021-07-09] MEDS: CHLORHEXIDINE GLUCONATE 0.12% 15ML CUP MM SCH ×2 (10:42→21:17)
[2021-07-09] MEDS: MULTIVITAMINS (DAILY MVI) TABLET (FP) PO SCH (10:42)
[2021-07-09] MEDS: POLYETHYLENE GLYCOL (HEALTHYLAX) 3350 17 GM PACKET PO SCH ×2 (10:43→21:17)
[2021-07-09] MEDS: ACETAMINOPHEN 325 MG TABLET (FP) PO PRN (13:47)
[2021-07-09] MEDS: DOCUSATE SODIUM 100 MG CAPSULE (FP) PO SCH (21:17)
[2021-07-10] MEDS: POLYETHYLENE GLYCOL (HEALTHYLAX) 3350 17 GM PACKET PO SCH ×2 (11:08→21:50)
[2021-07-10] MEDS: ATOVAQUONE 750 MG/5 ML (UNIT-DOSE PACKAGING) PO SCH (11:08)
[2021-07-10] MEDS: FLUCONAZOLE 100 MG TABLET (UD) PO SCH (11:09)
[2021-07-10] MEDS: CHLORHEXIDINE GLUCONATE 0.12% 15ML CUP MM SCH ×2 (11:10→21:51)
[2021-07-10] MEDS: BICTEGRAV/EMTRICIT/TENOFOV (BIKTARVY) 50-200-25 MG TABLET PO SCH (11:10)
[2021-07-10] MEDS: FLUoxetine HCL 20 MG CAPSULE PO SCH (11:11)
[2021-07-10] MEDS: MULTIVITAMINS (DAILY MVI) TABLET (FP) PO SCH (11:12)
[2021-07-10] MEDS: ACETAMINOPHEN 325 MG TABLET (FP) PO PRN (20:18)
[2021-07-10] MEDS: DOCUSATE SODIUM 100 MG CAPSULE (FP) PO SCH (21:51)
[2021-07-11] MEDS: ATOVAQUONE 750 MG/5 ML (UNIT-DOSE PACKAGING) PO SCH (10:13)
[2021-07-11] MEDS: CHLORHEXIDINE GLUCONATE 0.12% 15ML CUP MM SCH ×2 (10:13→22:00)
[2021-07-11] MEDS: FLUoxetine HCL 20 MG CAPSULE PO SCH (10:15)
[2021-07-11] MEDS: POLYETHYLENE GLYCOL (HEALTHYLAX) 3350 17 GM PACKET PO SCH ×2 (10:15→22:00)
[2021-07-11] MEDS: MULTIVITAMINS (DAILY MVI) TABLET (FP) PO SCH (10:16)
[2021-07-11] MEDS: DOCUSATE SODIUM 100 MG CAPSULE (FP) PO SCH (22:00)
[2021-07-12] MEDS: ACETAMINOPHEN 325 MG TABLET (FP) PO PRN (03:12)
[2021-07-12] MEDS: ATOVAQUONE 750 MG/5 ML (UNIT-DOSE PACKAGING) PO SCH (08:03)
[2021-07-12] MEDS: FLUoxetine HCL 20 MG CAPSULE PO SCH (09:15)
[2021-07-12] MEDS: MULTIVITAMINS (DAILY MVI) TABLET (FP) PO SCH (09:15)
[2021-07-12] MEDS: POLYETHYLENE GLYCOL (HEALTHYLAX) 3350 17 GM PACKET PO SCH ×2 (09:15→09:23)
[2021-07-12] MEDS: CHLORHEXIDINE GLUCONATE 0.12% 15ML CUP MM SCH ×2 (09:15→09:23)
[2021-07-12] MEDS: BICTEGRAV/EMTRICIT/TENOFOV (BIKTARVY) 50-200-25 MG TABLET PO SCH (10:28)
[2021-07-12 16:11] VITALS: BP 114/67; PULSE 88; TEMP 98.6
== END 2021-07-12 19:39 | DRG 890 ==
LOC: JER 07:04 → JERBED 12:53 → J6S 05-26 12:41 → J7W 06-18 18:05 → J8W 06-28 15:22
PROVIDERS: ADMIT Internal Medicine; ATTEND Nurse Practitioner Family
PROC: HZ2ZZZZ Detoxification Services for Substance Abuse Treatment (ICD-10-PCS; principal; 2021-05-25)
PROC: XW033E5 Introduction of Remdesivir Anti-infective into Peripheral Vein, Percutaneous Approach, New Technology Group 5 (ICD-10-PCS; 2021-07-08)
DX: A41.51 Sepsis due to Escherichia coli [E. coli] (principal); B20 Human immunodeficiency virus [HIV] disease; J15.5 Pneumonia due to Escherichia coli; B37.0 Candidal stomatitis; U07.1 COVID-19; E43 Unspecified severe protein-calorie malnutrition; J69.0 Pneumonitis due to inhalation of food and vomit; F11.20 Opioid dependence, uncomplicated; J98.4 Other disorders of lung; D72.819 Decreased white blood cell count, unspecified; F10.239 Alcohol dependence with withdrawal, unspecified; F17.210 Nicotine dependence, cigarettes, uncomplicated; F19.20 Other psychoactive substance dependence, uncomplicated; R13.14 Dysphagia, pharyngoesophageal phase; T17.908A Unspecified foreign body in respiratory tract, part unspecified causing other injury, initial encounter; Z68.1 Body mass index [BMI] 19.9 or less, adult; Z66 Do not resuscitate; R64 Cachexia; E78.5 Hyperlipidemia, unspecified; F32.9 Major depressive disorder, single episode, unspecified; K21.9 Gastro-esophageal reflux disease without esophagitis; I10 Essential (primary) hypertension; E88.09 Other disorders of plasma-protein metabolism, not elsewhere classified; X58.XXXA Exposure to other specified factors, initial encounter; Y93.89 Activity, other specified; Y92.89 Other specified places as the place of occurrence of the external cause; Y99.9 Unspecified external cause status
CPT/HCPCS: 36415; 70450-TC; 71045-TC-FY; 71250-TC; 74230-TC-FY; 80053; 80061; 81003; 82550; 82728; 82803; 82962; 83540; 83550; 83605; 83615; 83690; 83735; 84484; 85025; 85610; 85730; 86359; 86360; 86480; 87040; 87070; 87081; 87086; 87116; 87186; 87205; 87206; 87556; 87804; 87899; 92611-GN; 93005; 93010; 93306-TC; 93971-TC; 94640; 97116-GP; 97162-GP; 99285-25; C9803; J0131; Q0162; U0003; U0005